=== PATIENT | female | born 1975 | race Hispanic/Latino ===

== ENCOUNTER 2021-12-25 14:13 | Emergency (ER) | payer SELFPAY ==
[2021-12-25 14:30] VITALS: BP 124/76; PULSE 87; RESP 18; TEMP 36.6; O2SAT 99
[2021-12-25 15:57] LABS: Add Manual Diff / Slide Review NO; Basophils Absolute Auto 100 /uL (0-100); Basophils Percent Auto 0.5 % (0-2); Eosinophils Absolute Auto 300 /uL (0-450); Eosinophils Percent Auto 1.8 % (2-4); Hematocrit 40.5 % (36-46); Hemoglobin 13.7 g/dL (12.0-16.0); Lymphocytes Absolute Auto 2300 /uL (1100-4500); Lymphocytes Percent Auto 14.7 % (25-40); Mean Corpuscular HGB Conc 33.7 % (30-36); Mean Corpuscular Hemoglobin 30.5 PG (26-34); Mean Corpuscular Volume 90.6 fL (80-100); Monocytes Absolute Auto 1100 /uL (0-900); Neutrophils Absolute Auto 12000 /uL (1500-7000); Platelet Count 316 X10^3/uL (150-400); Red Blood Cell Count 4.48 X10^6/uL (4.0-5.2); Red Cell Distribution Width 13.6 % (11.6-14.8); White Blood Cell Count 15.8 X10^3/uL (4.5-11.0)
[2021-12-25 16:00] LABS: Alanine Aminotransferase 12 IU/L (<35); Albumin Globulin Ratio 1.1 (1.0-2.8); Alkaline Phosphatase 81 U/L (38-126); Aspartate Aminotransferase 23 IU/L (14-36); BUN Creatinine Ratio 11.1 (6-22); Bilirubin Total 0.5 mg/dL (0.2-1.3); Blood Urea Nitrogen 9 mg/dL (7-17); Calcium 9.2 mg/dL (8.4-10.2); Carbon Dioxide 27 mmol/L (22-32); Chloride 107 mmol/L (98-107); Estimated Glomerular Filt Rate > 60.0 mL/min (>60); Globulin 3.8 g/dL (1.7-4.1); Glucose 113 mg/dL (70-100); HEMOLYSIS < 15 (0-50); Lipase 76 U/L (23-300); Sodium 136 mmol/L (137-145); Total Protein 7.8 g/dL (6.3-8.2)
--- NOTE | 2021-12-25 17:51 | DI.CT.S_ITS ---
PROCEDURE: CT ABDOMEN PELVIS W CON INDICATIONS: RLQ pain TECHNIQUE: After the administration of intravenous contrast, axial sections acquired from the lung bases to the pubic symphysis. Coronal and sagittal reformats were performed. For radiation dose reduction, the following was used: automated exposure control, adjustment of mA and/or kV according to patient size. COMPARISON: None. FINDINGS: Image quality: Excellent. Lung bases: Unremarkable. Heart: No significant findings. ABDOMEN: Liver: Unremarkable. Gallbladder: Unremarkable. Biliary ducts: Unremarkable. Pancreas: Unremarkable. Spleen: Unremarkable. Adrenal Glands: Unremarkable. Kidneys and Ureters: Unremarkable. Stomach and Bowel: Appendectomy suture noted. Multiple diverticula arise from the right colon and cecum, there is pericecal inflammatory change and edema noted. Peritoneum: No abnormal intraperitoneal fluid. No free air. Ventral Wall: No hernias. Abdominal Nodes: No retroperitoneal or mesenteric adenopathy by size criteria. Vessels: Aorta and inferior vena cava are normal in size. PELVIS: Pelvic Organs: 3.5 cm simple left adnexal cyst, probable ovarian cyst. Bladder: Unremarkable. Pelvic Nodes: No enlarged lymph nodes. Miscellaneous: No hernias are seen. Bones: Unremarkable. IMPRESSION: 1. Right-sided diverticulitis present. Pericecal inflammatory change without abscess or obstruction. 2. Left ovarian simple cyst, 3.5 cm 3. Appendectomy Approved by: Addison Murry M.D. on 12/25/2021 at 17:52
--- NOTE | 2021-12-25 17:57 | ED.ABDPAIN ---
HPI - Abdominal Pain <Jv Rizvi PA-C - Last Filed: 12/25/21 19:16> General Chief Complaint: Abdominal Pain Stated Complaint: Right side abd pain when she moves/burning Time Seen by Provider: 12/25/21 17:34 Source: patient and family Mode of arrival: Ambulatory History of Present Illness HPI narrative: 46-year-old female past medical history cirrhosis, alcohol abuse presents to the ED with 3 days of right lower quadrant pain. Patient denies fever, chills, chest pain, shortness of breath, cough, nausea, vomiting, dysuria, flank pain, lightheadedness, dizziness, syncope, constipation, diarrhea. Patient's last bowel movement was yesterday which she describes as diarrhea. Patient denies hematochezia, melena. Patient states she has had 2 C sections. Patient unsure if she has had an appendectomy. Related Data Previous Rx's Medication Instructions Recorded ciprofloxacin HCl 500 mg tablet 500 mg PO BID #14 tab 07/05/17 (Cipro) ondansetron 4 mg disintegrating 4 mg SUBLINGUAL Q6HP PRN #10 odt 07/05/17 tablet (Zofran ODT) ciprofloxacin HCl 500 mg tablet 500 mg PO BID 5 Days #10 tab 12/25/21 metronidazole 500 mg tablet 500 mg PO Q8H 5 Days #15 tab 12/25/21 Allergies Allergy/AdvReac Type Severity Reaction Status Date / Time No Known Drug Allergies Allergy Verified 12/25/21 14:32 Review of Systems <Jv Rizvi PA-C - Last Filed: 12/25/21 19:16> Review of Systems ROS Unobtainable: All systems reviewed & are unremarkable except as noted in HPI and below Constitutional Constitutional: Denies chills, Denies fatigue, Denies fever(s), Denies frequent falls, Denies lethargy and Denies weakness Eyes Eyes: Denies change in vision, Denies eye discharge, Denies irritation and Denies loss of vision ENT Ears, Nose, Mouth, and Throat: Denies change in voice, Denies dizziness, Denies neck pain, Denies sore throat and Denies throat swelling Cardiovascular Cardiovascular: Denies chest pain, Denies irregular heart rhythm, Denies lightheadedness, Denies palpitations, Denies dyspnea, Denies dyspnea on exertion and Denies orthopnea Respiratory Respiratory: Denies cough, Denies dyspnea, Denies dyspnea on exertion and Denies wheezing Gastrointestinal Gastrointestinal: Reports abdominal pain, Denies change in bowel habits, Denies diarrhea, Denies nausea and Denies vomiting Genitourinary Genitourinary: Denies hematuria, Denies flank pain, Denies urinary incontinence and Denies urinary urgency Musculoskeletal Musculoskeletal: Denies back pain, Denies muscle weakness, Denies neck pain, Denies numbness and Denies tingling Integumentary/Breasts Skin/Breast: Denies pruritus, Denies erythema, Denies rash and Denies wounds Neurologic Neurologic: Denies behavioral changes, Denies confusion, Denies dizziness, Denies frequent falls, Denies loss of vision, Denies numbness, Denies tingling and Denies weakness Psychiatric Psychiatric: Denies anxiety, Denies behavioral changes, Denies confusion, Denies depression, Denies homicidal ideation and Denies suicidal ideation Endocrine Endocrine: Denies fatigue, Denies flushing and Denies palpitations Hematologic/Lymphatic Hematologic/Lymphatic: Denies easy bruising Allergic/Immunologic Allergic/Immunologic: Denies urticaria, Denies throat swelling and Denies wheezing Patient History <Jv Rizvi PA-C - Last Filed: 12/25/21 19:16> Social History Smoking Status: Current every day smoker Smoking Status: Current every day smoker Exam <Jv Rizvi PA-C - Last Filed: 12/25/21 19:16> Initial Vital Signs Initial Vital Signs: Vital Signs Temperature 97.8 F 12/25/21 14:30 Pulse Rate 87 12/25/21 14:30 Respiratory Rate 18 12/25/21 14:30 Blood Pressure 124/76 12/25/21 14:30 Pulse Oximetry 99 12/25/21 14:30 Const General: cooperative, healthy appearing and comfortable [facility] Head: normal to inspection Eyes General: appearance normal, both eyes and all related structures Neck Neck: normal visual inspection Chest Chest: normal inspection of the chest Resp Effort & Inspection: normal respiratory effort Auscultation: clear to auscultation bilaterally Cardio Rate: regular rate Rhythm: regular rhythm GI Other: Abdomen is soft, nondistended. Abdomen is exquisitely tender to palpation in the right lower quadrant. No CVA tenderness. General: No CVA tenderness Skin General: no rashes or lesions noted Neuro General: patient alert, patient awake and patient oriented x3 Psych Appearance: grossly normal Mental Status: mental status grossly normal <Santa Cherry DO - Last Filed: 12/26/21 07:52> Initial Vital Signs Initial Vital Signs: Vital Signs Temperature 97.8 F 12/25/21 14:30 Pulse Rate 87 12/25/21 14:30 Respiratory Rate 18 12/25/21 14:30 Blood Pressure 124/76 12/25/21 14:30 Pulse Oximetry 99 12/25/21 14:30 Course <Jv Rizvi PA-C - Last Filed: 12/25/21 19:16> Orders Ordered: Discontinued Medications Al Hydrox/Mg Hydrox/Simethicone 20 ml/ Lidocaine HCl 15 ml 0 ml PO NOW ONE Stop: 12/25/21 17:58 Last Admin: 12/25/21 18:20 Dose: 35 ml Documented by: COLIN Famotidine (Famotidine 20 Mg/2 Ml Vial) 20 mg IV NOW [facility] Last Admin: 12/25/21 18:19 Dose: 20 mg Documented by: LONG Morphine Sulfate (Morphine 4 Mg/Ml Inj) 4 mg IV NOW ONE Stop: 12/25/21 17:52 Last Admin: 12/25/21 18:18 Dose: 4 mg Documented by: LONG Vital Signs Vital signs: Vital Signs - 8 hr 12/25/21 14:30 12/25/21 18:16 12/25/21 18:20 Temperature 97.8 F 98.2 F Pulse Rate 87 74 Respiratory Rate 18 Blood Pressure 124/76 120/72 Pulse Oximetry 99 99 <Santa Cherry DO - Last Filed: 12/26/21 07:52> Orders Ordered: Discontinued Medications Al Hydrox/Mg Hydrox/Simethicone 20 ml/ Lidocaine HCl 15 ml 0 ml PO NOW ONE Stop: 12/25/21 17:58 Last Admin: 12/25/21 18:20 Dose: 35 ml Documented by: COLIN Famotidine (Famotidine 20 Mg/2 Ml Vial) 20 mg IV NOW [facility] Last Admin: 12/25/21 18:19 Dose: 20 mg Documented by: LONG Morphine Sulfate (Morphine 4 Mg/Ml Inj) 4 mg IV NOW ONE Stop: 12/25/21 17:52 Last Admin: 12/25/21 18:18 Dose: 4 mg Documented by: LONG Vital Signs Vital signs: Vital Signs - 8 hr 12/25/21 14:30 12/25/21 18:16 12/25/21 18:20 Temperature 97.8 F 98.2 F Pulse Rate 87 74 Respiratory Rate 18 Blood Pressure 124/76 120/72 Pulse Oximetry 99 99 MDM - Abdominal Pain <Hymelba Rizvi PA-C - Last Filed: 12/25/21 19:16> Lab Data Lab results narrative: WBC 15.8 Result diagrams: 12/25/21 14:36 12/25/21 14:36 Labs: Lab Results 12/25/21 12/25/21 Range/Units 14:36 14:36 WBC 15.8 H (4.5-11.0) X10^3/uL RBC 4.48 (4.0-5.2) X10^6/uL Hgb 13.7 (12.0-16.0) g/dL Hct 40.5 (36-46) % MCV 90.6 (80-100) fL MCH 30.5 (26-34) PG MCHC 33.7 (30-36) % RDW 13.6 (11.6-14.8) % Plt Count 316 (150-400) X10^3/uL Neut % (Auto) 76.0 H (50-75) % Lymph % (Auto) 14.7 L (25-40) % [place] % (Auto) 7.0 (3-14) % Eos % (Auto) 1.8 L (2-4) % Baso % (Auto) 0.5 (0-2) % Neut # (Auto) 95551 H (7500-3398) /uL Lymph # (Auto) 2300 (5001-8424) /uL [place] # (Auto) 1100 H (0-900) /uL Eos # (Auto) 300 (0-450) /uL Baso # (Auto) 100 (0-100) /uL Sodium 136 L (137-145) mmol/L Potassium 4.0 (3.4-5.1) mmol/L Chloride 107 (98-107) mmol/L Carbon Dioxide 27 (22-32) mmol/L BUN 9 (7-17) mg/dL Creatinine 0.81 (0.52-1.04) mg/dL Estimated GFR > 60.0 (>60) mL/min BUN/Creatinine Ratio 11.1 (6-22) Glucose 113 H (70-100) mg/dL Calcium 9.2 (8.4-10.2) mg/dL Total Bilirubin 0.5 (0.2-1.3) mg/dL AST 23 (14-36) IU/L ALT 12 (<35) IU/L Alkaline Phosphatase 81 (38-126) U/L Total Protein 7.8 (6.3-8.2) g/dL Albumin 4.0 (3.5-5.0) g/dL Globulin 3.8 (1.7-4.1) g/dL Albumin/Globulin Ratio 1.1 (1.0-2.8) Lipase 76 (23-300) U/L Point of care testing: Point of Care Testing Test Results Negative Urine Dip Bedside Urine Glucose Negative Bedside Urine Bilirubin - Negative Bedside Urine Ketone - Negative Urine Specific Mcdonald 1.015 Bedside Urine Occult Blood - Negative Bedside Urine pH 6 Bedside Urine Protein - Negative Bedside Urine Urobilinogen - Negative Bedside Urine Nitrite - Negative Bedside Urine Leukocytes - Negative Esterase Imaging Data CT scan - abdomen/pelvis: Radiologist's Impression: PROCEDURE:? CT ABDOMEN PELVIS W CON ? INDICATIONS:? RLQ pain ? TECHNIQUE:? After the administration of intravenous contrast, axial sections acquired from the lung bases to the pubic symphysis.? Coronal and sagittal reformats were performed.? For radiation dose reduction, the following was used:? automated exposure control, adjustment of mA and/or kV according to patient size.? ? COMPARISON:? None. ? FINDINGS:? Image quality:? Excellent.? ? Lung bases:? Unremarkable. Heart:? No significant findings. ? ABDOMEN: Liver:? Unremarkable.? ? Gallbladder:? Unremarkable.? ? Biliary ducts:? Unremarkable.? ? Pancreas:? Unremarkable.? ? Spleen:? Unremarkable.? ? Adrenal Glands:? Unremarkable.? ? Kidneys and Ureters:? Unremarkable.? ? ? Stomach and Bowel:? Appendectomy suture noted.? Multiple diverticula arise from the right colon and cecum, there is pericecal inflammatory change and edema noted. Peritoneum:? No abnormal intraperitoneal fluid.? No free air.? ? Ventral Wall: ? No hernias.? Abdominal Nodes:? No retroperitoneal or mesenteric adenopathy by size criteria.? Vessels:? Aorta and inferior vena cava are normal in size.? ? PELVIS: Pelvic Organs:? 3.5 cm simple left adnexal cyst, probable ovarian cyst. Bladder:? Unremarkable.? ? Pelvic Nodes: No enlarged lymph nodes.? Miscellaneous: No hernias are seen. ? ? ? Bones:? Unremarkable.? IMPRESSION:? ? 1. Right-sided diverticulitis present.? Pericecal inflammatory change without abscess or obstruction. ? 2. Left ovarian simple cyst, 3.5 cm ? 3. Appendectomy ? ? Approved by: Addison Murry M.D. on 12/25/2021 at 17:52? MDM Narrative Medical decision making narrative: 46-year-old female past medical history cirrhosis, alcohol abuse presents to the ED with 3 days of right lower quadrant pain. Concern for appendicitis versus urolithiasis versus UTI versus pancreatitis versus GERD versus gastritis. Will order labs, lipase, UA, hCG, CT abdomen pelvis. Will give IV fluids, morphine for symptoms. Will reassess. CT abdomen pelvis right-sided uncomplicated diverticulitis. Patient prescribed ciprofloxacin, metronidazole. Counseled patient on clear liquid diet, PCP follow-up in 3-5 days. ED return precautions discussed. Patient verbalized understanding. Discharge patient home. <Santa Cherry, - Last Filed: 12/26/21 07:52> Lab Data Labs: Lab Results 12/25/21 12/25/21 Range/Units 14:36 14:36 WBC 15.8 H (4.5-11.0) X10^3/uL RBC 4.48 (4.0-5.2) X10^6/uL Hgb 13.7 (12.0-16.0) g/dL Hct 40.5 (36-46) % MCV 90.6 (80-100) fL MCH 30.5 (26-34) PG MCHC 33.7 (30-36) % RDW 13.6 (11.6-14.8) % Plt Count 316 (150-400) X10^3/uL Neut % (Auto) 76.0 H (50-75) % Lymph % (Auto) 14.7 L (25-40) % [place] % (Auto) 7.0 (3-14) % Eos % (Auto) 1.8 L (2-4) % Baso % (Auto) 0.5 (0-2) % Neut # (Auto) 93984 H (1625-7635) /uL Lymph # (Auto) 2300 (9975-6245) /uL [place] # (Auto) 1100 H (0-900) /uL Eos # (Auto) 300 (0-450) /uL Baso # (Auto) 100 (0-100) /uL Sodium 136 L (137-145) mmol/L Potassium 4.0 (3.4-5.1) mmol/L Chloride 107 (98-107) mmol/L Carbon Dioxide 27 (22-32) mmol/L BUN 9 (7-17) mg/dL Creatinine 0.81 (0.52-1.04) mg/dL Estimated GFR > 60.0 (>60) mL/min BUN/Creatinine Ratio 11.1 (6-22) Glucose 113 H (70-100) mg/dL Calcium 9.2 (8.4-10.2) mg/dL Total Bilirubin 0.5 (0.2-1.3) mg/dL AST 23 (14-36) IU/L ALT 12 (<35) IU/L Alkaline Phosphatase 81 (38-126) U/L Total Protein 7.8 (6.3-8.2) g/dL Albumin 4.0 (3.5-5.0) g/dL Globulin 3.8 (1.7-4.1) g/dL Albumin/Globulin Ratio 1.1 (1.0-2.8) Lipase 76 (23-300) U/L Point of care testing: Point of Care Testing Test Results Negative Urine Dip Bedside Urine Glucose Negative Bedside Urine Bilirubin - Negative Bedside Urine Ketone - Negative Urine Specific Mcdonald 1.015 Bedside Urine Occult Blood - Negative Bedside Urine pH 6 Bedside Urine Protein - Negative Bedside Urine Urobilinogen - Negative Bedside Urine Nitrite - Negative Bedside Urine Leukocytes - Negative Esterase Discharge Plan Departure Patient Disposition: Home Clinical Impression: Diverticulitis Instructions: DI for Diverticulitis Activity Restrictions/Additional Instructions: You were evaluated in the ED today for right lower quadrant pain. Your your CT abdomen pelvis shows diverticulitis which is an abdominal infection. You have been prescribed antibiotics. Please rest your bowels by only taking and clear fluids for 5 days. You may take ibuprofen or Tylenol for your symptoms. You may take Pepcid AC twice a day for heartburn. To the ED if you develop fevers, chills, worsening abdominal pain, uncontrollable vomiting. Please follow-up with your PCP in 3-5 days. Prescriptions: New metronidazole 500 mg tablet 500 mg PO Q8H 5 Days Qty: 15 0RF ciprofloxacin HCl 500 mg tablet 500 mg PO BID 5 Days Qty: 10 0RF No Action ciprofloxacin HCl [Cipro] 500 MG tablet 500 mg PO BID Qty: 14 0RF ondansetron [Zofran ODT] 4 MG tablet,disintegrating 4 mg Sublingual Q6HP PRNQty: 10 0RF <Santa Cherry, DO - Last Filed: 12/26/21 07:52> Cosign ED Attending Cosgeorgeature Attestation: I was immediately available in the department for consultation. Documentation has been reviewed. I agree with assessment and plan.
[2021-12-25 18:16] VITALS: BP 120/72; PULSE 74; O2SAT 99
[2021-12-25] MEDS: MORPHINE 4 MG/ML INJ IV (18:18)
[2021-12-25] MEDS: FAMOTIDINE 20 MG/2 ML VIAL IV (18:19)
[2021-12-25 18:20] VITALS: TEMP 36.8
[2021-12-25] MEDS: MAG HYDROX/ALUMINUM/SIMETH SUS 20 ML, LIDOCAINE VISCOUS 2% 15 ML PO (18:20)
== END 2021-12-25 19:34 | disposition home or self-care (01) ==
PROVIDERS: Emergency Medicine; Emergency Provider Student in an Organized Health Care Education/Training Program
DX: K57.32 Diverticulitis of large intestine without perforation or abscess without bleeding (principal)
CPT/HCPCS: 36415; 74177; 80053; 81003; 81025; 83690; 85025; 96374; 96375; 99284; J2270; Q9967

== ENCOUNTER 2024-07-07 12:19 | Inpatient (IN) | payer SELFPAY ==
[2024-07-07] VITALS (49 sets, daily range): BP systolic 94–132; BP diastolic 53–85; PULSE 70–135; RESP 14–32; TEMP 36.4–36.9; O2SAT 94–100; BMI 26.4; BMI 24.6
--- NOTE | 2024-07-07 12:38 | EKG_ITS ---
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
--- NOTE | 2024-07-07 12:53 | ED_ITS ---
HPI - Alcohol General Chief Complaint: Toxicology Problem Stated Complaint: abd px Time Seen by Provider: 07/07/24 12:36 Source: patient Mode of arrival: Ambulatory History of Present Illness HPI narrative: Patient here with and daughter. They have declined senior air director services. Patient drinks heavily, at least a 12 pack of beer daily for many years. She did have rehabilitation in the past year. She has had off and on bright red blood per rectum. This past year. She has has had episodes recently. Denies abdominal pain. Last alcohol 5:00 a.m. today. Patient is trying to stop drinking alcohol. No auditory or visual hallucinations, no fall or injury. Patient is very tremulous but is alert and cooperative. Not agitated. Related Data Home Medications Medication Instructions Recorded Confirmed No Known Home Medications 07/08/24 07/08/24 Allergies Allergy/AdvReac Type Severity Reaction Status Date / Time No Known Drug Allergies Allergy Verified 07/07/24 14:04 Review of Systems Review of Systems Narrative: GENERAL: negative chills, fatigue, malaise, fever, sweats. HEENT: negative sinus pain, ear pain, sore throat RESPIRATORY: negative dyspnea, cough CARDIOVASCULAR: negative chest pain, palpitations GASTROINTESTINAL: Positive nausea, vomiting, positive rectal bleeding, negative abdominal pain : negative dysuria, frequency, hematuria MUSCULOSKELETAL: negative muscle or bony pain SKIN: negative rash, skin lesions NEUROLOGIC: negative weakness, numbness positive tremors Patient History Social History household members: spouse and family Smoking Status: Current every day smoker Smoking Status: Current every day smoker alcohol intake frequency: 3 or more drinks per day Alcohol type: beer Substance Use Type: does not use Exam Narrative Exam Narrative: GENERAL: in no distress, not toxic not dyspneic HEAD: Normocephalic. EYES: Pupils equal round pink conjunctiva ENT: Mucous membranes moist. NECK: Trachea midline. CARDIOVASCULAR: Regular rate and rhythm, tachycardic RESPIRATORY: Clear to auscultation. Breath sounds equal bilaterally. No wheezes, rales, or rhonchi. GASTROINTESTINAL: Abdomen soft, non-tender no peritoneal signs EXTREMITIES: No gross deformities. BACK: No flank tenderness. NEURO: AOx4. SKIN: Warm and dry no jaundice PSYCH: Not anxious, is cooperative Initial Vital Signs Initial Vital Signs: Vital Signs Temperature 97.5 F L 07/07/24 12:25 Pulse Rate 135 H 07/07/24 12:25 Respiratory Rate 18 07/07/24 12:25 Blood Pressure 118/56 L 07/07/24 12:25 Pulse Oximetry 100 07/07/24 12:25 Oxygen Delivery Method Room Air 07/07/24 12:25 Course Orders Ordered: Discontinued Medications Heparin Sodium (Porcine) (Heparin Flush (Cl/Picc/Mid-Line) 50 Unit/5 Ml Syringe) 50 unit IV PRN PRN PRN Reason: Flush Lactated Ringer's (Lactated Ringers) 500 mls @ 1,000 mls/hr IV BOLUS ONE Stop: 07/07/24 17:14 Last Infusion: 07/07/24 19:21 Dose: Infused Documented By: Admin: 07/07/24 17:06 Dose: 1,000 mls/hr Documented By: CW Thiamine HCl 500 mg/ Sodium (Chloride) 105 mls @ 420 mls/hr IV NOW ONE Stop: 07/07/24 16:52 Last Infusion: 07/07/24 21:02 Dose: Infused Documented By: Admin: 07/07/24 17:41 Dose: 420 mls/hr Documented By: MARLON Lactated Ringer's (Lactated Ringers) 1,000 mls @ 100 mls/hr IV CONT NICK Last Admin: 07/09/24 06:58 Dose: 100 mls/hr Documented By: Infusion: 07/09/24 02:30 Dose: Infused Documented By: Admin: 07/08/24 16:08 Dose: 100 mls/hr Documented By: Infusion: 07/08/24 14:01 Dose: Infused Documented By: Admin: 07/08/24 04:01 Dose: 100 mls/hr Documented By: Infusion: 07/08/24 03:42 Dose: Infused Documented By: Admin: 07/07/24 17:42 Dose: 100 mls/hr Documented By: MARLON POTASSIUM CHLORIDE IN WATER (Potassium Cl 10 Meq/100 Ml Lida) 10 meq in 100 mls @ 100 mls/hr IV Q1H NICK Stop: 07/08/24 16:29 Last Admin: 07/08/24 15:58 Dose: Not Given Documented By: Admin: 07/08/24 15:57 Dose: Not Given Documented By: Infusion: 07/08/24 15:57 Dose: Infused Documented By: Admin: 07/08/24 11:39 Dose: 100 mls/hr Documented By: Infusion: 07/08/24 09:49 Dose: Infused Documented By: Admin: 07/08/24 08:49 Dose: 100 mls/hr Documented By: CALEB Magnesium Sulfate (Magnesium Sulfate) 2 gm in 50 mls @ 25 mls/hr IV NOW ONE Stop: 07/08/24 10:22 Last Infusion: 07/08/24 15:58 Dose: Infused Documented By: CALEB Co-signed By: JUDIT Admin: 07/08/24 08:47 Dose: 25 mls/hr Documented By: CALEB Co-signed By: JUDIT Lactated Ringer's (Lactated Ringers) 500 mls @ 1,000 mls/hr IV BOLUS ONE Stop: 07/09/24 05:07 Last Infusion: 07/09/24 05:45 Dose: Infused Documented By: Admin: 07/09/24 04:55 Dose: 1,000 mls/hr Documented By: JIM NOREPINEPHRINE BITARTRATE/D5W (Levophed) 4 mg in 250 mls @ 21.45 mls/hr IV TITRATE NICK; Protocol Last Titration: 07/09/24 12:39 Dose: 0 mcg/kg/min, 0 mls/hr Documented By: Titration: 07/09/24 11:38 Dose: 0.06 mcg/kg/min, 12.87 mls/hr Documented By: Titration: 07/09/24 10:07 Dose: 0.08 mcg/kg/min, 17.16 mls/hr Documented By: Admin: 07/09/24 07:46 Dose: 0.1 mcg/kg/min, 21.45 mls/hr Documented By: JUDIT Ceftriaxone Sodium 1,000 mg/ (Sodium Chloride) 100 mls @ 200 mls/hr IV Q24H NICK Last Admin: 07/09/24 10:43 Dose: 200 mls/hr Documented By: JUDIT Lorazepam (Lorazepam 2 Mg/Ml Inj) 0 mg IV CIWAPRN PRN; Protocol PRN Reason: Alcohol Withdrawal Last Admin: 07/09/24 04:36 Dose: 2 mg Documented By: JIM Lorazepam (Lorazepam 2 Mg/Ml Inj) 0.5 mg IV NOW ONE Stop: 07/07/24 14:07 Last Admin: 07/07/24 14:12 Dose: 0.5 mg Documented By: IRIS Multivitamins (Multivitamin 1 Tablet) 1 tab PO DAILY [facility] Last Admin: 07/09/24 10:06 Dose: Not Given Documented By: Admin: 07/08/24 08:47 Dose: 1 tab Documented By: CALEB Naloxone HCl (Naloxone 0.4 Mg/Ml Vial) 0.2 mg IV Q2MIN PRN PRN Reason: Opiate Reversal Ondansetron HCl (Ondansetron 4 Mg/2 Ml Inj) 4 mg IV NOW PRN PRN Reason: Nausea And Vomiting Ondansetron HCl (Ondansetron 4 Mg Odt) 4 mg SL NOW PRN PRN Reason: Nausea And Vomiting Pantoprazole Sodium (Pantoprazole 40 Mg Vial) 80 mg IV NOW ONE Stop: 07/07/24 12:39 Last Admin: 07/07/24 13:17 Dose: 80 mg Documented By: SHAWNEE Pantoprazole Sodium (Pantoprazole 40 Mg Vial) 80 mg IV NOW ONE Stop: 07/07/24 14:35 Last Admin: 07/07/24 14:48 Dose: Not Given Documented By: SHAWNEE Pantoprazole Sodium (Pantoprazole Dr 40 Mg Tablet) 40 mg PO 0700 [facility] Last Admin: 07/09/24 10:08 Dose: Not Given Documented By: JUDIT Pantoprazole Sodium (Pantoprazole Dr 20 Mg Tablet) 40 mg PO NOW ONE Stop: 07/08/24 20:48 Last Admin: 07/08/24 21:33 Dose: 40 mg Documented By: JIM Pantoprazole Sodium (Pantoprazole 40 Mg Vial) 40 mg IV 0700 [facility] Phenobarbital (Phenobarbital 65 Mg/Ml Vial) 260 mg IV NOW ONE Stop: 07/07/24 16:51 Last Admin: 07/07/24 17:10 Dose: 260 mg Documented By: CALEB Phenobarbital (Phenobarbital 65 Mg/Ml Vial) 260 mg IV NOW ONE Stop: 07/07/24 18:20 Last Admin: 07/07/24 19:21 Dose: Not Given Documented By: MARLON Phenobarbital Sodium (Phenobarbital 130 Mg/Ml Vial) 130 mg IV NOW ONE Stop: 07/07/24 18:53 Last Admin: 07/07/24 18:58 Dose: 130 mg Documented By: MARLON Potassium Chloride (Potassium Chloride 20 Meq Tab) 40 meq PO Q6H [facility] Stop: 07/08/24 19:01 Last Admin: 07/08/24 18:43 Dose: 40 meq Documented By: Admin: 07/08/24 12:41 Dose: 40 meq Documented By: CALEB Sodium Chloride (Sodium Chloride 0.9% Flush) 10 ml IV PRN PRN PRN Reason: Flush Sodium Chloride (Sodium Chloride 0.9% Flush) 10 ml IV BID [facility] Last Admin: 07/09/24 10:06 Dose: Not Given Documented By: Admin: 07/08/24 21:10 Dose: 10 ml Documented By: Admin: 07/08/24 12:10 Dose: 10 ml Documented By: Admin: 07/07/24 21:05 Dose: 10 ml Documented By: JIM Thiamine HCl (Thiamine 100 Mg Tablet) 100 mg PO DAILY [facility] Stop: 07/11/24 09:01 Vital Signs Vital signs: Vital Signs - 8 hr 07/07/24 12:25 07/07/24 12:42 07/07/24 12:43 Temperature 97.5 F L Pulse Rate 135 H 102 H 102 H Respiratory Rate 18 Blood Pressure 118/56 L Pulse Oximetry 100 100 100 Oxygen Delivery Method Room Air 07/07/24 12:43 07/07/24 13:00 07/07/24 13:00 Temperature Pulse Rate 91 H Respiratory Rate 22 Blood Pressure 104/71 115/68 Pulse Oximetry 100 Oxygen Delivery Method 07/07/24 13:30 07/07/24 13:30 07/07/24 14:00 Temperature Pulse Rate 85 90 Respiratory Rate 26 H 29 H Blood Pressure 106/70 Pulse Oximetry 100 100 Oxygen Delivery Method 07/07/24 14:00 07/07/24 14:06 07/07/24 14:06 Temperature Pulse Rate 82 Respiratory Rate 26 H Blood Pressure 108/72 99/62 Pulse Oximetry 100 Oxygen Delivery Method 07/07/24 14:11 07/07/24 14:11 07/07/24 14:15 Temperature Pulse Rate 90 85 Respiratory Rate 26 H 24 Blood Pressure 107/65 Pulse Oximetry 100 100 Oxygen Delivery Method Room Air 07/07/24 14:15 07/07/24 14:20 07/07/24 14:20 Temperature Pulse Rate 83 Respiratory Rate 26 H Blood Pressure 105/62 106/63 Pulse Oximetry 100 Oxygen Delivery Method 07/07/24 14:25 07/07/24 14:25 07/07/24 14:30 Temperature Pulse Rate 92 H 109 H Respiratory Rate 17 31 H Blood Pressure 126/79 Pulse Oximetry 100 100 Oxygen Delivery Method 07/07/24 14:30 07/07/24 14:35 07/07/24 14:35 Temperature Pulse Rate 99 H Respiratory Rate 27 H Blood Pressure 132/85 105/64 Pulse Oximetry 99 Oxygen Delivery Method MDM - Alcohol Lab Data 07/09/24 13:25 07/09/24 05:20 Labs: Lab Results 07/07/24 07/07/24 07/07/24 Range/Units 12:48 14:28 14:28 WBC 13.6 H (4.5-11.0) X10^3/uL RBC 3.61 L (4.0-5.2) X10^6/uL Hgb 12.1 (12.0-16.0) g/dL Hct 35.6 L (36-46) % MCV 98.5 (80-100) fL MCH 33.4 (26-34) PG MCHC 33.9 (30-36) % RDW 12.3 (11.6-14.8) % Plt Count 228 (150-400) X10^3/uL Neut % (Auto) 76.0 H (50-75) % Lymph % (Auto) 15.0 L (25-40) % Leon % (Auto) 7.5 (3-14) % Eos % (Auto) 0.2 L (2-4) % Baso % (Auto) 1.3 (0-2) % Neut # (Auto) 90956 H (9607-7515) /uL Lymph # (Auto) 2000 (0906-5564) /uL Leon # (Auto) 1000 H (0-900) /uL Eos # (Auto) 0 (0-450) /uL Baso # (Auto) 200 H (0-100) /uL PT 12.1 (9.4-12.5) SECONDS INR 1.1 (0.9-1.3) APTT 27 (25.1-36.5) SECONDS Sodium 136 L (137-145) mmol/L Potassium 3.8 (3.4-5.1) mmol/L Chloride 106 (98-107) mmol/L Carbon Dioxide 19 L (22-32) mmol/L BUN 9 (7-17) mg/dL Creatinine 0.85 (0.52-1.04) mg/dL Estimated GFR > 60 (>60) mL/min BUN/Creatinine Ratio 10.6 (6-22) Glucose 177 H (70-100) mg/dL Hemoglobin A1c 4.6 (4.0-6.0) % Calcium 9.0 (8.4-10.2) mg/dL Magnesium 1.6 (1.6-2.3) mg/dL Total Bilirubin 2.0 H (0.2-1.3) mg/dL AST 71 H (14-36) IU/L ALT 30 (<35) IU/L Alkaline Phosphatase 105 (38-126) U/L Total Protein 7.1 (6.3-8.2) g/dL Albumin 3.6 (3.5-5.0) g/dL Globulin 3.5 (1.7-4.1) g/dL Albumin/Globulin Ratio 1.0 (1.0-2.8) Urine Color Yellow Urine Appearance Sl cloudy Urine pH 8.5 H Normal (4.5-8.0) Ur Specific [place] 1.010 (1.000-1.035) Urine Protein Negative (Negative) Urine Glucose (UA) Negative (Negative) g/dL Urine Ketones 2+ H (NEGATIVE) Urine Occult Blood 2+ H (Negative) Urine Nitrate Positive H (Negative) Urine Bilirubin 1+ H (NEGATIVE) Ur Bilirubin Confirm Negative (Negative) Urine Urobilinogen 0.2 (0.2) E.U./dL Ur Leukocyte Esterase Trace H (NEGATIVE) Urine RBC None seen (0-5/HPF) Urine WBC 10-30/hpf H (0-5/HPF) Ur Squamous Epith Cells 1-5 /hpf (0-5/HPF) Urine Bacteria Many (>30) H (None) Ur Culture Indicated? Specimen cultured Vol Urine Centrifuged 10ml (spun) Urine Test Negative (Negative) U Opiates 300ng/mL cut Negative (Negative) Ur Oxycodone Screen Negative (Negative) Urine Methadone Screen Negative (Negative) Ur Barbiturates Screen Negative (Negative) U Tricyclic Antidepress Negative (Negative) Ur Phencyclidine Scrn Negative (Negative) Ur Amphetamines Screen Negative (Negative) U Methamphetamines Scrn Negative (Negative) Ur MDMA Scrn (Ecstasy) Negative (Negative) U Benzodiazepines Scrn Negative (Negative) Urine Cocaine Screen Negative (Negative) U Marijuana (THC) Screen Negative (Negative) Urine Specific [place] Normal (Normal) Ethyl Alcohol < 10 ( - 10) mg/dL Ur Creatinine Normal (Normal) Blood Type B Positive Antibody Screen Negative Point of Care Testing Stool Occult Blood Positive Imaging Data CT scan - abdomen/pelvis: Radiologist's Impressoin: [address] [address] [address] Scan Report Signed Patient: Dolly Rodriguez MR#: [id number] : 1975 Acct:[id number] Age/Sex: 48 / F Date of Service: 07/07/24 Loc: 90A-1 Accession Number: [id number] Procedure: CT abdomen pelvis w con Ordering Provider: Tigre Kramer MD PROCEDURE: CT ABDOMEN PELVIS W CON INDICATIONS: Abdominal pain/rectal bleeding TECHNIQUE: After the administration of intravenous contrast, axial sections acquired from the lung bases to the pubic symphysis. Coronal and sagittal reformats were performed. For radiation dose reduction, the following was used: automated exposure control, adjustment of mA and/or kV according to patient size. COMPARISON: [facility], CT, CT ABDOMEN PELVIS W CON, 12/25/2021, 17:56. FINDINGS: Image quality: Diagnostic. Lower Chest: No significant findings. ABDOMEN: Liver: No solid mass. Hepatic steatosis. Liver measures 17.3 cm. Gallbladder: No radiopaque gallstones or wall thickening. Biliary ducts: No biliary dilation. Pancreas: No ductal dilation. Spleen: Size is within normal limits. Adrenal Glands: No adrenal nodules. Kidneys and Ureters: No hydronephrosis. No solid mass. No complex renal cystic lesion which requires follow up. Stomach and Bowel: There is fluid-filled prominence of the sigmoid colon with mild scattered fluid levels without gross dilation within the remaining colon. Scattered diverticula are present without definitively identified inflammation. Peritoneum: No abnormal intraperitoneal fluid. No free air. Ventral Wall: No significant ventral hernia. Abdominal Nodes: No retroperitoneal or mesenteric adenopathy by size criteria. Vessels: Aorta and inferior vena cava are normal in size. PELVIS: Pelvic Organs: 2.1 cm right ovarian cyst. Bladder: Bladder demonstrates a diffusely thickened wall. It is incompletely distended. Pelvic Nodes: No enlarged lymph nodes. Miscellaneous: No inguinal hernias are seen. Bones: No aggressive osseous abnormality. IMPRESSION: Fluid-filled prominence of the sigmoid colon possibly secondary to diarrhea. No source of obstruction is identified. Diverticulosis. Despite incomplete distention, bladder wall is markedly thickened. Recommend correlation to symptoms of cystitis. Dictated by: Lain Douglas M.D. on 07/07/2024 at 15:47 Approved by: Lian Douglas M.D. on 07/07/2024 at 15:51 [facility] Narrative Medical decision making narrative: Patient here with and daughter. They have declined senior air director services. Patient drinks heavily, at least a 12 pack of beer daily for many years. She did have rehabilitation in the past year. She has had off and on bright red blood per rectum. This past year. She has has had episodes recently. Denies abdominal pain. Last alcohol 5:00 a.m. today. Patient is trying to stop drinking alcohol. No auditory or visual hallucinations, no fall or injury. Patient is very tremulous but is alert and cooperative. Not agitated. After history and exam CBC CMP alcohol level drug screen EKG [facility] protocol medications [facility] Medical records reviewed: No recent visit for this complaint Differential considered: Includes but not limited to delirium tremens alcohol withdrawal Lab Test results independently reviewed as above. Pertinent findings: WBC 13.6 hemoglobin 12.1 hematocrit 35.6 sodium 136 potassium 3.8 bicarb 19 GFR greater than 60 glucose 177 total bilirubin 2.0 AST 71 negative alcohol Independently reviewed EKG normal sinus rhythm normal EKG rate 83 Imaging studies independently reviewed: CT abdomen pelvis diverticulosis noted fluid-filled Consultations: 2:[address] Sheehan, who will admit patient for withdrawal, ICU. 2:40 p.m.. Spoke with hospitalist again Dr Sheehan, patient had large dark stool in bed jaime. We did review images from 2021 CT abdomen pelvis patient does have history of right-sided diverticulosis diverticulitis. Liver was unremarkable on that CT imaging 2 years ago. I did contact Dr. Flores, general surgery, who will follow in consult however he is in surgery at this time. Vital signs are stable at this time. Protonix has been ordered. This is likely diverticular bleed. Patient denies any epigastric pain and there has been no hematemesis. Treatments: Ativan normal saline Zofran Re-evaluations: Updated patient and family results and they do agree for admission. Patient is feeling better. Discussion: Appropriate for admission, patient will need inpatient for alcohol withdrawal symptoms. Patient is improving Diagnosis: Alcohol withdrawal Critical Care Time Critical Care Time Attestation: Critical Care Time 35 minutes: Critical care time is separate from other billable procedures. This critical care time includes consultation with family and other consulting doctors, review of records, and interpretation of data from labs, EKGs, imaging, etc. Discharge Plan Departure Patient Disposition: Admitted As Inpatient Clinical Impression: Alcohol withdrawal syndrome Qualifiers: Complication of substance-induced condition: uncomplicated Qualified Code(s): F 10.930 - Alcohol use, unspecified with withdrawal, uncomplicated Admit Date/Time: 07/07/24 14:38 Admit Provider: Bhaskar Sheehan
[2024-07-07 13:01] LABS: Add Manual Diff / Slide Review NO; Basophils Absolute Auto 200 /uL (0-100); Basophils Percent Auto 1.3 % (0-2); Eosinophils Absolute Auto 0 /uL (0-450); Eosinophils Percent Auto 0.2 % (2-4); Hematocrit 35.6 % (36-46); Hemoglobin 12.1 g/dL (12.0-16.0); Lymphocytes Absolute Auto 2000 /uL (1100-4500); Mean Corpuscular HGB Conc 33.9 % (30-36); Mean Corpuscular Hemoglobin 33.4 PG (26-34); Mean Corpuscular Volume 98.5 fL (80-100); Monocytes Absolute Auto 1000 /uL (0-900); Monocytes Percent Auto 7.5 % (3-14); Neutrophils Absolute Auto 10300 /uL (1500-7000); Platelet Count 228 X10^3/uL (150-400); Red Blood Cell Count 3.61 X10^6/uL (4.0-5.2); Red Cell Distribution Width 12.3 % (11.6-14.8); White Blood Cell Count 13.6 X10^3/uL (4.5-11.0)
[2024-07-07 13:11] LABS: INR 1.1 (0.9-1.3); Prothrombin Time 12.1 SECONDS (9.4-12.5)
[2024-07-07 13:13] LABS: PTT Partial Thromboplastin Tim 27 SECONDS (25.1-36.5)
[2024-07-07 13:15] LABS: Albumin 3.6 g/dL (3.5-5.0); Aspartate Aminotransferase 71 IU/L (14-36); BUN Creatinine Ratio 10.6 (6-22); Blood Urea Nitrogen 9 mg/dL (7-17); Carbon Dioxide 19 mmol/L (22-32); Estimated Glomerular Filt Rate > 60 mL/min (>60); Globulin 3.5 g/dL (1.7-4.1); Glucose 177 mg/dL (70-100); HEMOLYSIS < 15 (0-50); Total Protein 7.1 g/dL (6.3-8.2)
[2024-07-07] MEDS: PANTOPRAZOLE 40 MG VIAL 80 MG IV (13:17)
[2024-07-07 13:34] LABS: Alanine Aminotransferase 30 IU/L (<35); Alkaline Phosphatase 105 U/L (38-126); Chloride 106 mmol/L (98-107); Ethanol (ETOH) < 10 mg/dL; Magnesium 1.6 mg/dL (1.6-2.3); Potassium 3.8 mmol/L (3.4-5.1); Sodium 136 mmol/L (137-145)
[2024-07-07 13:56] LABS: Hemoglobin A1C% w Est Avg Glu 4.6 % (4.0-6.0)
--- NOTE | 2024-07-07 13:56 | PC.NURSE ---
Patient stated that her symptoms get worse when she stands up. when she got into her bed she stopped shaking so much. Her blood pressure and heart rate both came down from the values in triage. She denies nausea, headache, hallucinations. provider updated
[2024-07-07] MEDS: LORazepam 2 MG/ML INJ 0.5 MG IV (14:12)
--- NOTE | 2024-07-07 14:12 | PC.NURSE ---
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 a bed side commode was brought to the bed side and the patient was sat on the side of the bed. The patient stated I'm feeling dizzy and then lost all color. I layed the patient back down onto the bed and called for a staff assist. LAURA Beltran was brought to the room and notified.
--- NOTE | 2024-07-07 14:35 | PC.NURSE ---
Patient had BM and passed approx 200cc dark blood and clots per rectum
--- NOTE | 2024-07-07 14:36 | PC.NURSE ---
patient had a large amount approx (200mls) dark red blood.
[2024-07-07 14:44] LABS: Bilirubin Urine UA 1+ (NEGATIVE); Color Urine UA YELLOW; Glucose Urine UA NEGATIVE (Negative); Ketones Urine UA 2+ (NEGATIVE); Leukocyte Esterase Urine UA TRACE (NEGATIVE); Nitrite Urine UA POSITIVE (Negative); Occult Blood Urine UA 2+ (Negative); Protein Urine UA NEGATIVE (Negative); Urobilinogen Urine UA 0.2 E.U./dL (0.2)
[2024-07-07 14:46] LABS: Appearance Urine UA SL CLOUDY; pH Urine UA 8.5 (4.5-8.0)
[2024-07-07 14:48] LABS: UR Morphine/Opiate cutoff 300 Negative (Negative); Ur Creatinine Normal (Normal); Ur Specific Gravity Normal (Normal); Urine Amphetamines Negative (Negative); Urine Barbiturates Negative (Negative); Urine Benzodiazepines Negative (Negative); Urine Cocaine Negative (Negative); Urine MDMA Negative (Negative); Urine Methadone Negative (Negative); Urine Methamphetamines Negative (Negative); Urine Oxycodone Negative (Negative); Urine Phencyclidine Negative (Negative); Urine Tetrahydrocannabinol Negative (Negative); Urine Tricyclic Antidepressant Negative (Negative); Urine pH Normal (Normal)
--- NOTE | 2024-07-07 14:52 | DI.CT.S_ITS ---
PROCEDURE: CT ABDOMEN PELVIS W CON INDICATIONS: Abdominal pain/rectal bleeding TECHNIQUE: After the administration of intravenous contrast, axial sections acquired from the lung bases to the pubic symphysis. Coronal and sagittal reformats were performed. For radiation dose reduction, the following was used: automated exposure control, adjustment of mA and/or kV according to patient size. COMPARISON: [facility], CT, CT ABDOMEN PELVIS W CON, 12/25/2021, 17:56. FINDINGS: Image quality: Diagnostic. Lower Chest: No significant findings. ABDOMEN: Liver: No solid mass. Hepatic steatosis. Liver measures 17.3 cm. Gallbladder: No radiopaque gallstones or wall thickening. Biliary ducts: No biliary dilation. Pancreas: No ductal dilation. Spleen: Size is within normal limits. Adrenal Glands: No adrenal nodules. Kidneys and Ureters: No hydronephrosis. No solid mass. No complex renal cystic lesion which requires follow up. Stomach and Bowel: There is fluid-filled prominence of the sigmoid colon with mild scattered fluid levels without gross dilation within the remaining colon. Scattered diverticula are present without definitively identified inflammation. Peritoneum: No abnormal intraperitoneal fluid. No free air. Ventral Wall: No significant ventral hernia. Abdominal Nodes: No retroperitoneal or mesenteric adenopathy by size criteria. Vessels: Aorta and inferior vena cava are normal in size. PELVIS: Pelvic Organs: 2.1 cm right ovarian cyst. Bladder: Bladder demonstrates a diffusely thickened wall. It is incompletely distended. Pelvic Nodes: No enlarged lymph nodes. Miscellaneous: No inguinal hernias are seen. Bones: No aggressive osseous abnormality. IMPRESSION: Fluid-filled prominence of the sigmoid colon possibly secondary to diarrhea. No source of obstruction is identified. Diverticulosis. Despite incomplete distention, bladder wall is markedly thickened. Recommend correlation to symptoms of cystitis. Dictated by: Lian Douglas M.D. on 07/07/2024 at 15:47 Approved by: Lian Douglas M.D. on 07/07/2024 at 15:51
[2024-07-07 15:04] LABS: Bacteria Urine Many (>30); Culture Indicated Urine Specimen Cultured; Ictotest Urine Negative (Negative); RBC Urine None Seen (0-5/HPF); Squamous Epithelial Cell Urine 1-5 /HPF (0-5/HPF); Urine Volume 10mL (spun); WBC Urine 10-30/HPF (0-5/HPF)
[2024-07-07 15:07] LABS: Pregnancy Test Urine Negative (Negative)
--- NOTE | 2024-07-07 15:50 | PM.HP.1 ---
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 F who has a history of bad alcohol withdrawal, alcohol use disorder presenting to the ED due to bright red blood per rectum at home with associated dizziness. Patient had 3 episodes of passage of blood with clots and one in the ED. She is also requesting medical detox for withdrawal. Patient was vitally stable while in the ED but became dizzy when sitting up. Hgb was stable unchanged significantly from baseline. Alcohol level was <10mg/dL consistent with patients story of last drink night prior to admission. She was calm and exhibiting no major withdrawal symptoms. CT abd was preformed in ED which did not show cirrhosis and demonstrated a Fluid-filled prominence of the sigmoid colon possibly secondary to diarrhea. 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 [facility] Social History Smoking Status: Current every day smoker Meds Home Medications and Allergies Allergies Allergy/AdvReac Type Severity Reaction Status Date / Time No Known Drug Allergies Allergy Verified 07/07/24 14:04 Review of Systems Review of Systems ROS: Yes All systems reviewed with the patient and are negative except as otherwise documented Exam Vital Signs (past 8 hours): - 07/07/24 12:25 07/07/24 12:42 07/07/24 12:43 Temperature 97.5 F L Pulse Rate 135 H 102 H 102 H Respiratory Rate 18 Blood Pressure 118/56 L Pulse Oximetry 100 100 100 Oxygen Delivery Method Room Air 07/07/24 12:43 07/07/24 13:00 07/07/24 13:00 Temperature Pulse Rate 91 H Respiratory Rate 22 Blood Pressure 104/71 115/68 Pulse Oximetry 100 Oxygen Delivery Method 07/07/24 13:30 07/07/24 13:30 07/07/24 14:00 Temperature Pulse Rate 85 90 Respiratory Rate 26 H 29 H Blood Pressure 106/70 Pulse Oximetry 100 100 Oxygen Delivery Method 07/07/24 14:00 07/07/24 14:06 07/07/24 14:06 Temperature Pulse Rate 82 Respiratory Rate 26 H Blood Pressure 108/72 99/62 Pulse Oximetry 100 Oxygen Delivery Method 07/07/24 14:11 07/07/24 14:11 07/07/24 14:15 Temperature Pulse Rate 90 85 Respiratory Rate 26 H 24 Blood Pressure 107/65 Pulse Oximetry 100 100 Oxygen Delivery Method Room Air 07/07/24 14:15 07/07/24 14:20 07/07/24 14:20 Temperature Pulse Rate 83 Respiratory Rate 26 H Blood Pressure 105/62 106/63 Pulse Oximetry 100 Oxygen Delivery Method 07/07/24 14:25 07/07/24 14:25 07/07/24 14:30 Temperature Pulse Rate 92 H 109 H Respiratory Rate 17 31 H Blood Pressure 126/79 Pulse Oximetry 100 100 Oxygen Delivery Method 07/07/24 14:30 07/07/24 14:35 07/07/24 14:35 Temperature Pulse Rate 99 H Respiratory Rate 27 H Blood Pressure 132/85 105/64 Pulse Oximetry 99 Oxygen Delivery Method 07/07/24 14:40 07/07/24 14:40 07/07/24 14:52 Temperature Pulse Rate 92 H 80 Respiratory Rate 31 H 19 Blood Pressure 110/71 Pulse Oximetry 100 100 Oxygen Delivery Method 07/07/24 14:52 07/07/24 14:55 07/07/24 14:55 Temperature Pulse Rate 79 Respiratory Rate 24 Blood Pressure 111/70 109/70 Pulse Oximetry 100 Oxygen Delivery Method 07/07/24 15:00 07/07/24 15:00 07/07/24 15:05 Temperature Pulse Rate 79 80 Respiratory Rate 15 21 Blood Pressure 113/71 Pulse Oximetry 100 100 Oxygen Delivery Method 07/07/24 15:05 07/07/24 15:10 07/07/24 15:10 Temperature Pulse Rate 83 Respiratory Rate 20 Blood Pressure 103/67 94/61 Pulse Oximetry 100 Oxygen Delivery Method 07/07/24 15:16 07/07/24 15:16 07/07/24 15:20 Temperature Pulse Rate 86 91 H Respiratory Rate 14 19 Blood Pressure 103/61 Pulse Oximetry 99 100 Oxygen Delivery Method 07/07/24 15:20 07/07/24 15:25 07/07/24 15:25 Temperature Pulse Rate 90 Respiratory Rate 23 Blood Pressure 100/62 95/60 Pulse Oximetry 100 Oxygen Delivery Method 07/07/24 15:30 07/07/24 15:30 07/07/24 15:36 Temperature Pulse Rate 88 87 Respiratory Rate 16 28 H Blood Pressure 102/61 Pulse Oximetry 98 100 Oxygen Delivery Method 07/07/24 15:36 07/07/24 15:39 07/07/24 15:39 Temperature Pulse Rate 91 H Respiratory Rate 26 H Blood Pressure 94/64 99/70 Pulse Oximetry 99 Oxygen Delivery Method 07/07/24 15:40 07/07/24 15:40 Temperature Pulse Rate 88 Respiratory Rate 20 Blood Pressure 102/69 Pulse Oximetry 99 Oxygen Delivery Method Oxygen Delivery Method Room Air Narrative Exam Narrative: general: well appearing, not in distress lung: CTA B/L, normal effort cardio: RRR abd: soft, non-tender to deep palpation in all quadrants, BS present and normoactive neuro: no focal deficits, alert and oriented psych: pleasant, cooperative Objective Imaging CT Abd/Pelvis: Radiologist's impression: PROCEDURE: CT ABDOMEN PELVIS W CON INDICATIONS: Abdominal pain/rectal bleeding TECHNIQUE: After the administration of intravenous contrast, axial sections acquired from the lung bases to the pubic symphysis. Coronal and sagittal reformats were performed. For radiation dose reduction, the following was used: automated exposure control, adjustment of mA and/or kV according to patient size. COMPARISON: [facility], CT, CT ABDOMEN PELVIS W CON, 12/25/2021, 17:56. FINDINGS: Image quality: Diagnostic. Lower Chest: No significant findings. ABDOMEN: Liver: No solid mass. Hepatic steatosis. Liver measures 17.3 cm. Gallbladder: No radiopaque gallstones or wall thickening. Biliary ducts: No biliary dilation. Pancreas: No ductal dilation. Spleen: Size is within normal limits. Adrenal Glands: No adrenal nodules. Kidneys and Ureters: No hydronephrosis. No solid mass. No complex renal cystic lesion which requires follow up. Stomach and Bowel: There is fluid-filled prominence of the sigmoid colon with mild scattered fluid levels without gross dilation within the remaining colon. Scattered diverticula are present without definitively identified inflammation. Peritoneum: No abnormal intraperitoneal fluid. No free air. Ventral Wall: No significant ventral hernia. Abdominal Nodes: No retroperitoneal or mesenteric adenopathy by size criteria. Vessels: Aorta and inferior vena cava are normal in size. PELVIS: Pelvic Organs: 2.1 cm right ovarian cyst. Bladder: Bladder demonstrates a diffusely thickened wall. It is incompletely distended. Pelvic Nodes: No enlarged lymph nodes. Miscellaneous: No inguinal hernias are seen. Bones: No aggressive osseous abnormality. IMPRESSION: Fluid-filled prominence of the sigmoid colon possibly secondary to diarrhea. No source of obstruction is identified. Diverticulosis. Despite incomplete distention, bladder wall is markedly thickened. Recommend correlation to symptoms of cystitis. Labs 07/07/24 12:48 07/07/24 12:48 Labs: Laboratory Results - last 24 hr 07/07/24 07/07/24 07/07/24 12:48 14:28 14:28 WBC 13.6 H RBC 3.61 L Hgb 12.1 Hct 35.6 L MCV 98.5 MCH 33.4 MCHC 33.9 RDW 12.3 Plt Count 228 Neut % (Auto) 76.0 H Lymph % (Auto) 15.0 L [place] % (Auto) 7.5 Eos % (Auto) 0.2 L Baso % (Auto) 1.3 Neut # (Auto) 71576 H Lymph # (Auto) 2000 [place] # (Auto) 1000 H Eos # (Auto) 0 Baso # (Auto) 200 H PT 12.1 INR 1.1 APTT 27 Sodium 136 L Potassium 3.8 Chloride 106 Carbon Dioxide 19 L BUN 9 Creatinine 0.85 Estimated GFR > 60 BUN/Creatinine Ratio 10.6 Glucose 177 H Hemoglobin A1c 4.6 Calcium 9.0 Magnesium 1.6 Total Bilirubin 2.0 H AST 71 H ALT 30 Alkaline Phosphatase 105 Total Protein 7.1 Albumin 3.6 Globulin 3.5 Albumin/Globulin Ratio 1.0 Urine Color Yellow Urine Appearance Sl cloudy Urine pH 8.5 H Normal Ur Specific [place] 1.010 Urine Protein Negative Urine Glucose (UA) Negative Urine Ketones 2+ H Urine Occult Blood 2+ H Urine Nitrate Positive H Urine Bilirubin 1+ H Ur Bilirubin Confirm Negative Urine Urobilinogen 0.2 Ur Leukocyte Esterase Trace H Urine RBC None seen Urine WBC 10-30/hpf H Ur Squamous Epith Cells 1-5 /hpf Urine Bacteria Many (>30) H Ur Culture Indicated? Specimen cultured Vol Urine Centrifuged 10ml (spun) Urine Test Negative U Opiates 300ng/mL cut Negative Ur Oxycodone Screen Negative Urine Methadone Screen Negative Ur Barbiturates Screen Negative U Tricyclic Antidepress Negative Ur Phencyclidine Scrn Negative Ur Amphetamines Screen Negative U Methamphetamines Scrn Negative Ur MDMA Scrn (Ecstasy) Negative U Benzodiazepines Scrn Negative Urine Cocaine Screen Negative U Marijuana (THC) Screen Negative Urine Specific [place] Normal Ethyl Alcohol < 10 Ur Creatinine Normal Blood Type B Positive Antibody Screen Negative Assessment & Plan Assessment & Plan narrative: #GI Bleed - likely lower -general surgery consult for possible EGD/colonscopy -CBC q8hr -Monitor Hgb, transfuse to maintain >7 -type and screen -IV Protonix #Severe Alcohol Use Disorder with concern for severe withdrawal #Orthostasis -plan to load with phenobarbital to 10mg/kg/IBW (450mg). Will start with 260mg and see how she responds and consider additional doses pending status. -Bolus 1L LR then start LR @100cc/hr -Thiamine + Folic Acid DVT PPx: SCD CODE: child welfare specialist-Based Coding :: [TOTAL MINUTES] spent with patient and on the chart (including review of chart, obtaining history, exam, reviewing outside data, placing orders, documenting exam and treatment plan, and counseling patient) on [DATE].
[2024-07-07] MEDS: LACTATED RINGERS 500 ML 1000 ML IV (17:06)
[2024-07-07] MEDS: PHENobarbital 65 MG/ML VIAL 260 MG IV (17:10)
[2024-07-07] MEDS: THIAMINE 500 MG in SODIUM CHLORIDE 0.9% 100 ML 420 MG IV (17:41)
[2024-07-07] MEDS: LACTATED RINGERS 1,000 ML 100 ML IV (17:42)
--- NOTE | 2024-07-07 17:59 | PM.CN ---
History of Present Illness Consult details Date Patient Seen: 07/07/24 Time Patient Seen: 17:59 Chief complaint: bright red blood per rectum, alcohol withdrawal Narrative: 48F alcoholic admitted for alcohol withdrawl and bright red blood per rectum. Hemodynamically stable. Not on anticoagulation no known history of varices. CT A/P diverticulosis without diverticulitis. Meds Home Medications and Allergies Allergies Allergy/AdvReac Type Severity Reaction Status Date / Time No Known Drug Allergies Allergy Verified 07/07/24 14:04 Exam Vital Signs (past 8 hours): - 07/07/24 12:25 07/07/24 12:42 07/07/24 12:43 Temperature 97.5 F L Pulse Rate 135 H 102 H 102 H Respiratory Rate 18 Blood Pressure 118/56 L Pulse Oximetry 100 100 100 Oxygen Delivery Method Room Air 07/07/24 12:43 07/07/24 13:00 07/07/24 13:00 Temperature Pulse Rate 91 H Respiratory Rate 22 Blood Pressure 104/71 115/68 Pulse Oximetry 100 Oxygen Delivery Method 07/07/24 13:30 07/07/24 13:30 07/07/24 14:00 Temperature Pulse Rate 85 90 Respiratory Rate 26 H 29 H Blood Pressure 106/70 Pulse Oximetry 100 100 Oxygen Delivery Method 07/07/24 14:00 07/07/24 14:06 07/07/24 14:06 Temperature Pulse Rate 82 Respiratory Rate 26 H Blood Pressure 108/72 99/62 Pulse Oximetry 100 Oxygen Delivery Method 07/07/24 14:11 07/07/24 14:11 07/07/24 14:15 Temperature Pulse Rate 90 85 Respiratory Rate 26 H 24 Blood Pressure 107/65 Pulse Oximetry 100 100 Oxygen Delivery Method Room Air 07/07/24 14:15 07/07/24 14:20 07/07/24 14:20 Temperature Pulse Rate 83 Respiratory Rate 26 H Blood Pressure 105/62 106/63 Pulse Oximetry 100 Oxygen Delivery Method 07/07/24 14:25 07/07/24 14:25 07/07/24 14:30 Temperature Pulse Rate 92 H 109 H Respiratory Rate 17 31 H Blood Pressure 126/79 Pulse Oximetry 100 100 Oxygen Delivery Method 07/07/24 14:30 07/07/24 14:35 07/07/24 14:35 Temperature Pulse Rate 99 H Respiratory Rate 27 H Blood Pressure 132/85 105/64 Pulse Oximetry 99 Oxygen Delivery Method 07/07/24 14:40 07/07/24 14:40 07/07/24 14:52 Temperature Pulse Rate 92 H 80 Respiratory Rate 31 H 19 Blood Pressure 110/71 Pulse Oximetry 100 100 Oxygen Delivery Method 07/07/24 14:52 07/07/24 14:55 07/07/24 14:55 Temperature Pulse Rate 79 Respiratory Rate 24 Blood Pressure 111/70 109/70 Pulse Oximetry 100 Oxygen Delivery Method 07/07/24 15:00 07/07/24 15:00 07/07/24 15:05 Temperature Pulse Rate 79 80 Respiratory Rate 15 21 Blood Pressure 113/71 Pulse Oximetry 100 100 Oxygen Delivery Method 07/07/24 15:05 07/07/24 15:10 07/07/24 15:10 Temperature Pulse Rate 83 Respiratory Rate 20 Blood Pressure 103/67 94/61 Pulse Oximetry 100 Oxygen Delivery Method 07/07/24 15:16 07/07/24 15:16 07/07/24 15:20 Temperature Pulse Rate 86 91 H Respiratory Rate 14 19 Blood Pressure 103/61 Pulse Oximetry 99 100 Oxygen Delivery Method 07/07/24 15:20 07/07/24 15:25 07/07/24 15:25 Temperature Pulse Rate 90 Respiratory Rate 23 Blood Pressure 100/62 95/60 Pulse Oximetry 100 Oxygen Delivery Method 07/07/24 15:30 07/07/24 15:30 07/07/24 15:36 Temperature Pulse Rate 88 87 Respiratory Rate 16 28 H Blood Pressure 102/61 Pulse Oximetry 98 100 Oxygen Delivery Method 07/07/24 15:36 07/07/24 15:39 07/07/24 15:39 Temperature Pulse Rate 91 H Respiratory Rate 26 H Blood Pressure 94/64 99/70 Pulse Oximetry 99 Oxygen Delivery Method 07/07/24 15:40 07/07/24 15:40 07/07/24 15:45 Temperature Pulse Rate 88 90 Respiratory Rate 20 14 Blood Pressure 102/69 Pulse Oximetry 99 94 Oxygen Delivery Method 07/07/24 15:45 07/07/24 15:50 07/07/24 15:50 Temperature Pulse Rate 87 Respiratory Rate 18 Blood Pressure 114/72 112/71 Pulse Oximetry 94 Oxygen Delivery Method 07/07/24 15:55 07/07/24 15:55 07/07/24 16:00 Temperature Pulse Rate 87 90 Respiratory Rate 17 15 Blood Pressure 116/72 Pulse Oximetry 96 97 Oxygen Delivery Method 07/07/24 16:00 07/07/24 16:00 07/07/24 16:05 Temperature Pulse Rate 88 Respiratory Rate 14 Blood Pressure 108/71 Pulse Oximetry 98 Oxygen Delivery Method Room Air 07/07/24 16:05 07/07/24 16:10 07/07/24 16:10 Temperature Pulse Rate 88 Respiratory Rate 21 Blood Pressure 106/68 113/71 Pulse Oximetry 97 Oxygen Delivery Method 07/07/24 16:30 07/07/24 16:33 07/07/24 17:00 Temperature 97.8 F Pulse Rate 99 H 97 H Respiratory Rate 20 25 H Blood Pressure Pulse Oximetry 99 99 Oxygen Delivery Method 07/07/24 17:27 07/07/24 17:27 07/07/24 17:30 Temperature Pulse Rate 93 H Respiratory Rate 32 H Blood Pressure 122/78 109/71 Pulse Oximetry 99 Oxygen Delivery Method 07/07/24 17:30 Temperature Pulse Rate 90 Respiratory Rate 19 Blood Pressure Pulse Oximetry 99 Oxygen Delivery Method Oxygen Delivery Method Room Air Narrative Exam Narrative: Gen-Adult womanalert and oriented dutch speaking only Abdomen-soft non tender Objective Labs 07/07/24 12:48 07/07/24 12:48 Labs: Laboratory Results - last 24 hr 07/07/24 07/07/24 07/07/24 12:48 14:28 14:28 WBC 13.6 H RBC 3.61 L Hgb 12.1 Hct 35.6 L MCV 98.5 MCH 33.4 MCHC 33.9 RDW 12.3 Plt Count 228 Neut % (Auto) 76.0 H Lymph % (Auto) 15.0 L [place] % (Auto) 7.5 Eos % (Auto) 0.2 L Baso % (Auto) 1.3 Neut # (Auto) 54005 H Lymph # (Auto) 2000 [place] # (Auto) 1000 H Eos # (Auto) 0 Baso # (Auto) 200 H PT 12.1 INR 1.1 APTT 27 Sodium 136 L Potassium 3.8 Chloride 106 Carbon Dioxide 19 L BUN 9 Creatinine 0.85 Estimated GFR > 60 BUN/Creatinine Ratio 10.6 Glucose 177 H Hemoglobin A1c 4.6 Calcium 9.0 Magnesium 1.6 Total Bilirubin 2.0 H AST 71 H ALT 30 Alkaline Phosphatase 105 Total Protein 7.1 Albumin 3.6 Globulin 3.5 Albumin/Globulin Ratio 1.0 Urine Color Yellow Urine Appearance Sl cloudy Urine pH 8.5 H Normal Ur Specific [place] 1.010 Urine Protein Negative Urine Glucose (UA) Negative Urine Ketones 2+ H Urine Occult Blood 2+ H Urine Nitrate Positive H Urine Bilirubin 1+ H Ur Bilirubin Confirm Negative Urine Urobilinogen 0.2 Ur Leukocyte Esterase Trace H Urine RBC None seen Urine WBC 10-30/hpf H Ur Squamous Epith Cells 1-5 /hpf Urine Bacteria Many (>30) H Ur Culture Indicated? Specimen cultured Vol Urine Centrifuged 10ml (spun) Urine Test Negative U Opiates 300ng/mL cut Negative Ur Oxycodone Screen Negative Urine Methadone Screen Negative Ur Barbiturates Screen Negative U Tricyclic Antidepress Negative Ur Phencyclidine Scrn Negative Ur Amphetamines Screen Negative U Methamphetamines Scrn Negative Ur MDMA Scrn (Ecstasy) Negative U Benzodiazepines Scrn Negative Urine Cocaine Screen Negative U Marijuana (THC) Screen Negative Urine Specific [place] Normal Ethyl Alcohol < 10 Ur Creatinine Normal Blood Type B Positive Antibody Screen Negative [facility] Tobacco & Substance Use Smoking Status: Current every day smoker Assessment & Plan Assessment and plan (1) Rectal bleeding: Problem details: 48F alcoholic admitted with alcohol withdrawal and GI bleed. Hemodynamically stable. Presumably GIB is lower probably diverticular and will likely stop spontaneously. No plan at this time for colonoscopy will reevaluate tomorrow. Transfuse as needed PPI Status: Acute Time-Based Coding :: [TOTAL MINUTES] spent with patient and on the chart (including review of chart, obtaining history, exam, reviewing outside data, placing orders, documenting exam and treatment plan, and counseling patient) on [DATE].
[2024-07-07 18:02] LABS: Hematocrit 29.8 % (36-46); Hemoglobin 10.1 g/dL (12.0-16.0); Mean Corpuscular Hemoglobin 33.8 PG (26-34); Mean Corpuscular Volume 99.4 fL (80-100); Platelet Count 165 X10^3/uL (150-400); Red Blood Cell Count 2.99 X10^6/uL (4.0-5.2); Red Cell Distribution Width 12.1 % (11.6-14.8); White Blood Cell Count 10.3 X10^3/uL (4.5-11.0)
[2024-07-07 18:14] LABS: INR 1.1 (0.9-1.3); Prothrombin Time 12.9 SECONDS (9.4-12.5)
[2024-07-07 18:16] LABS: PTT Partial Thromboplastin Tim 26 SECONDS (25.1-36.5)
[2024-07-07] MEDS: PHENobarbital 130 MG/ML VIAL IV (18:58)
[2024-07-07] MEDS: SODIUM CHLORIDE 0.9% FLUSH 10 ML IV (21:05)
[2024-07-07 21:29] LABS: Alanine Aminotransferase 22 IU/L (<35); Albumin 2.8 g/dL (3.5-5.0); Albumin Globulin Ratio 0.9 (1.0-2.8); Alkaline Phosphatase 76 U/L (38-126); Aspartate Aminotransferase 60 IU/L (14-36); BUN Creatinine Ratio 14.5 (6-22); Bilirubin Total 1.6 mg/dL (0.2-1.3); Blood Urea Nitrogen 11 mg/dL (7-17); Calcium 8.7 mg/dL (8.4-10.2); Carbon Dioxide 23 mmol/L (22-32); Chloride 108 mmol/L (98-107); Estimated Glomerular Filt Rate > 60 mL/min (>60); Globulin 3.1 g/dL (1.7-4.1); Glucose 119 mg/dL (70-100); HEMOLYSIS < 15 (0-50); Potassium 3.7 mmol/L (3.4-5.1); Sodium 133 mmol/L (137-145); Total Protein 5.9 g/dL (6.3-8.2)
[2024-07-07 23:26] LABS: Mean Corpuscular HGB Conc 34.6 % (30-36); Mean Corpuscular Hemoglobin 34.6 PG (26-34); Mean Corpuscular Volume 100.1 fL (80-100); Platelet Count 135 X10^3/uL (150-400); Red Cell Distribution Width 12.2 % (11.6-14.8); White Blood Cell Count 9.8 X10^3/uL (4.5-11.0)
[2024-07-08] VITALS (71 sets, daily range): BP systolic 82–127; BP diastolic 50–79; PULSE 69–126; RESP 3–34; TEMP 36.1–37.3; O2SAT 96–100
[2024-07-08] MEDS: LACTATED RINGERS 1,000 ML 100 ML IV ×2 (04:01→16:08)
[2024-07-08 06:06] LABS: Add Manual Diff / Slide Review NO; Basophils Absolute Auto 100 /uL (0-100); Basophils Percent Auto 0.8 % (0-2); Eosinophils Absolute Auto 500 /uL (0-450); Eosinophils Percent Auto 5.8 % (2-4); Hematocrit 23.6 % (36-46); Hemoglobin 8.1 g/dL (12.0-16.0); Lymphocytes Absolute Auto 2100 /uL (1100-4500); Lymphocytes Percent Auto 26.2 % (25-40); Mean Corpuscular HGB Conc 34.4 % (30-36); Mean Corpuscular Hemoglobin 34.6 PG (26-34); Mean Corpuscular Volume 100.6 fL (80-100); Monocytes Absolute Auto 700 /uL (0-900); Monocytes Percent Auto 8.7 % (3-14); Neutrophils Absolute Auto 4700 /uL (1500-7000); Neutrophils Percent Auto 58.5 % (50-75); Platelet Count 125 X10^3/uL (150-400); Red Blood Cell Count 2.35 X10^6/uL (4.0-5.2); Red Cell Distribution Width 12.2 % (11.6-14.8)
--- NOTE | 2024-07-08 06:22 | PC.NURSE ---
Patient current H/H 8.1/23.6, asymptomatic, vital signs stable, denies c/o pain or discomfort, LR infusing at 100 ml/hr.
[2024-07-08 06:24] LABS: BUN Creatinine Ratio 14.3 (6-22); Blood Urea Nitrogen 11 mg/dL (7-17); Calcium 8.1 mg/dL (8.4-10.2); Carbon Dioxide 25 mmol/L (22-32); Chloride 108 mmol/L (98-107); Estimated Glomerular Filt Rate > 60 mL/min (>60); Glucose 94 mg/dL (70-100); HEMOLYSIS < 15 (0-50); Potassium 3.2 mmol/L (3.4-5.1); Sodium 133 mmol/L (137-145)
[2024-07-08] MEDS: MAGNESIUM SULFATE 2 GM/50 ML PIGGYBACK IV (08:47)
[2024-07-08] MEDS: MULTIVITAMIN 1 TABLET 1 TAB PO (08:47)
[2024-07-08] MEDS: POTASSIUM CHLORIDE IN WATER 10 MEQ/100 ML PIGGYBACK 100 MEQ IV ×2 (08:49→11:39)
[2024-07-08] MEDS: SODIUM CHLORIDE 0.9% FLUSH 10 ML IV ×2 (12:10→21:10)
[2024-07-08] MEDS: POTASSIUM CHLORIDE 20 MEQ TAB 40 MEQ PO ×2 (12:41→18:43)
--- NOTE | 2024-07-08 13:05 | P.PN_ITS ---
Subjective Subjective Interval history: no signs of withdrawal, had large bloody BM Exam Vital Signs (past 8 hours): - 07/08/24 05:30 07/08/24 05:30 07/08/24 06:00 Temperature Pulse Rate 72 Respiratory Rate 17 Blood Pressure 116/63 100/59 L Pulse Oximetry 99 Oxygen Delivery Method Oxygen Flow Rate 07/08/24 06:00 07/08/24 06:30 07/08/24 06:30 Temperature Pulse Rate 81 70 Respiratory Rate 16 3 L Blood Pressure 108/60 Pulse Oximetry 99 99 Oxygen Delivery Method Oxygen Flow Rate 0 07/08/24 07:00 07/08/24 07:00 07/08/24 07:04 Temperature Pulse Rate 71 Respiratory Rate 15 Blood Pressure 98/56 L Pulse Oximetry 100 Oxygen Delivery Method Room Air Oxygen Flow Rate 07/08/24 07:04 07/08/24 07:30 07/08/24 07:30 Temperature Pulse Rate 78 74 Respiratory Rate 20 17 Blood Pressure 107/71 Pulse Oximetry 99 99 Oxygen Delivery Method Oxygen Flow Rate 07/08/24 08:00 07/08/24 08:00 07/08/24 08:30 Temperature Pulse Rate 107 H Respiratory Rate 24 Blood Pressure 116/79 116/63 Pulse Oximetry 99 Oxygen Delivery Method Oxygen Flow Rate 07/08/24 08:30 07/08/24 09:00 07/08/24 09:00 Temperature Pulse Rate 95 H 82 Respiratory Rate 15 16 Blood Pressure 101/61 Pulse Oximetry 97 99 Oxygen Delivery Method Oxygen Flow Rate 07/08/24 09:30 07/08/24 09:30 07/08/24 09:40 Temperature 98.1 F Pulse Rate 81 82 Respiratory Rate 16 16 Blood Pressure 94/56 L 94/56 L Pulse Oximetry 98 Oxygen Delivery Method Oxygen Flow Rate 07/08/24 09:41 07/08/24 09:41 07/08/24 09:55 Temperature 98.1 F Pulse Rate 84 89 Respiratory Rate 27 H 16 Blood Pressure 99/61 101/63 Pulse Oximetry 98 Oxygen Delivery Method Oxygen Flow Rate 07/08/24 10:00 07/08/24 10:00 07/08/24 10:04 Temperature Pulse Rate 83 Respiratory Rate 21 Blood Pressure 95/63 101/63 Pulse Oximetry 100 Oxygen Delivery Method Oxygen Flow Rate 07/08/24 10:04 07/08/24 10:30 07/08/24 10:30 Temperature Pulse Rate 78 74 Respiratory Rate 17 21 Blood Pressure 98/68 Pulse Oximetry 100 100 Oxygen Delivery Method Oxygen Flow Rate 07/08/24 11:00 07/08/24 11:00 07/08/24 11:30 Temperature Pulse Rate 71 Respiratory Rate 17 Blood Pressure 100/68 114/71 Pulse Oximetry 100 Oxygen Delivery Method Oxygen Flow Rate 07/08/24 11:30 07/08/24 11:43 07/08/24 11:43 Temperature Pulse Rate 71 70 Respiratory Rate 18 18 Blood Pressure 118/71 Pulse Oximetry 98 99 Oxygen Delivery Method Oxygen Flow Rate 07/08/24 12:00 07/08/24 12:00 07/08/24 12:05 Temperature 99.1 F Pulse Rate 82 69 Respiratory Rate 13 18 Blood Pressure 110/63 118/71 Pulse Oximetry 99 Oxygen Delivery Method Oxygen Flow Rate 07/08/24 12:30 07/08/24 12:30 Temperature Pulse Rate 76 Respiratory Rate 17 Blood Pressure 122/76 Pulse Oximetry 97 Oxygen Delivery Method Oxygen Flow Rate Oxygen Delivery Method Room Air Oxygen Flow Rate 0 Narrative Exam Narrative: general: well appearing, not in distress lung: CTA B/L, normal effort cardio: RRR abd: soft, non-tender to deep palpation in all quadrants, BS present and normoactive neuro: no focal deficits, alert and oriented psych: pleasant, cooperative Objective Labs 07/08/24 05:50 07/08/24 05:50 Labs: Laboratory Results - last 24 hr 07/07/24 07/07/24 07/07/24 12:48 14:28 14:28 WBC RBC Hgb Hct MCV MCH MCHC RDW Plt Count Neut % (Auto) Lymph % (Auto) [place] % (Auto) Eos % (Auto) Baso % (Auto) Neut # (Auto) Lymph # (Auto) [place] # (Auto) Eos # (Auto) Baso # (Auto) PT 12.1 INR 1.1 APTT 27 Sodium 136 L Potassium 3.8 Chloride 106 Carbon Dioxide 19 L BUN 9 Creatinine 0.85 Estimated GFR > 60 BUN/Creatinine Ratio 10.6 Glucose 177 H Hemoglobin A1c 4.6 Calcium 9.0 Magnesium 1.6 Total Bilirubin 2.0 H AST 71 H ALT 30 Alkaline Phosphatase 105 Total Protein 7.1 Albumin 3.6 Globulin 3.5 Albumin/Globulin Ratio 1.0 Urine Color Yellow Urine Appearance Sl cloudy Urine pH 8.5 H Normal Ur Specific [place] 1.010 Urine Protein Negative Urine Glucose (UA) Negative Urine Ketones 2+ H Urine Occult Blood 2+ H Urine Nitrate Positive H Urine Bilirubin 1+ H Ur Bilirubin Confirm Negative Urine Urobilinogen 0.2 Ur Leukocyte Esterase Trace H Urine RBC None seen Urine WBC 10-30/hpf H Ur Squamous Epith Cells 1-5 /hpf Urine Bacteria Many (>30) H Ur Culture Indicated? Specimen cultured Vol Urine Centrifuged 10ml (spun) Urine Test Negative U Opiates 300ng/mL cut Negative Ur Oxycodone Screen Negative Urine Methadone Screen Negative Ur Barbiturates Screen Negative U Tricyclic Antidepress Negative Ur Phencyclidine Scrn Negative Ur Amphetamines Screen Negative U Methamphetamines Scrn Negative Ur MDMA Scrn (Ecstasy) Negative U Benzodiazepines Scrn Negative Urine Cocaine Screen Negative U Marijuana (THC) Screen Negative Urine Specific [place] Normal Ethyl Alcohol < 10 Ur Creatinine Normal Blood Type B Positive Antibody Screen Negative Crossmatch 07/07/24 07/07/24 07/07/24 17:30 17:45 23:17 WBC 10.3 9.8 RBC 2.99 L 2.60 L Hgb 10.1 L 9.0 L Hct 29.8 L 26.0 L MCV 99.4 100.1 H MCH 33.8 34.6 H MCHC 34.0 34.6 RDW 12.1 12.2 Plt Count 165 135 L Neut % (Auto) Lymph % (Auto) [place] % (Auto) Eos % (Auto) Baso % (Auto) Neut # (Auto) Lymph # (Auto) [place] # (Auto) Eos # (Auto) Baso # (Auto) PT 12.9 H INR 1.1 APTT 26 Sodium 133 L Potassium 3.7 Chloride 108 H Carbon Dioxide 23 BUN 11 Creatinine 0.76 Estimated GFR > 60 BUN/Creatinine Ratio 14.5 Glucose 119 H Hemoglobin A1c Calcium 8.7 Magnesium Total Bilirubin 1.6 H AST 60 H ALT 22 Alkaline Phosphatase 76 Total Protein 5.9 L Albumin 2.8 L Globulin 3.1 Albumin/Globulin Ratio 0.9 L Urine Color Urine Appearance Urine pH Ur Specific [place] Urine Protein Urine Glucose (UA) Urine Ketones Urine Occult Blood Urine Nitrate Urine Bilirubin Ur Bilirubin Confirm Urine Urobilinogen Ur Leukocyte Esterase Urine RBC Urine WBC Ur Squamous Epith Cells Urine Bacteria Ur Culture Indicated? Vol Urine Centrifuged Urine Test U Opiates 300ng/mL cut Ur Oxycodone Screen Urine Methadone Screen Ur Barbiturates Screen U Tricyclic Antidepress Ur Phencyclidine Scrn Ur Amphetamines Screen U Methamphetamines Scrn Ur MDMA Scrn (Ecstasy) U Benzodiazepines Scrn Urine Cocaine Screen U Marijuana (THC) Screen Urine Specific [place] Ethyl Alcohol Ur Creatinine Blood Type B Positive Antibody Screen Negative Crossmatch See Detail 07/08/24 05:50 WBC 8.0 RBC 2.35 L Hgb 8.1 L Hct 23.6 L MCV 100.6 H MCH 34.6 H MCHC 34.4 RDW 12.2 Plt Count 125 L Neut % (Auto) 58.5 Lymph % (Auto) 26.2 [place] % (Auto) 8.7 Eos % (Auto) 5.8 H Baso % (Auto) 0.8 Neut # (Auto) 4700 Lymph # (Auto) 2100 [place] # (Auto) 700 Eos # (Auto) 500 H Baso # (Auto) 100 PT INR APTT Sodium 133 L Potassium 3.2 L Chloride 108 H Carbon Dioxide 25 BUN 11 Creatinine 0.77 Estimated GFR > 60 BUN/Creatinine Ratio 14.3 Glucose 94 Hemoglobin A1c Calcium 8.1 L Magnesium Total Bilirubin AST ALT Alkaline Phosphatase Total Protein Albumin Globulin Albumin/Globulin Ratio Urine Color Urine Appearance Urine pH Ur Specific [place] Urine Protein Urine Glucose (UA) Urine Ketones Urine Occult Blood Urine Nitrate Urine Bilirubin Ur Bilirubin Confirm Urine Urobilinogen Ur Leukocyte Esterase Urine RBC Urine WBC Ur Squamous Epith Cells Urine Bacteria Ur Culture Indicated? Vol Urine Centrifuged Urine Test U Opiates 300ng/mL cut Ur Oxycodone Screen Urine Methadone Screen Ur Barbiturates Screen U Tricyclic Antidepress Ur Phencyclidine Scrn Ur Amphetamines Screen U Methamphetamines Scrn Ur MDMA Scrn (Ecstasy) U Benzodiazepines Scrn Urine Cocaine Screen U Marijuana (THC) Screen Urine Specific [place] Ethyl Alcohol Ur Creatinine Blood Type Antibody Screen Crossmatch [facility] Social History Smoking Status: Current every day smoker Assessment & Plan Assessment & Plan narrative: Patient is knik andorran speaker here with daughter, they declined rehabilitation technician with daughter translating encounter 48 y.o. F who has a history of bad alcohol withdrawal, alcohol use disorder presenting to the ED due to bright red blood per rectum at home with associated dizziness. Patient had 3 episodes of passage of blood with clots and one in the ED. She is also requesting medical detox for withdrawal. Patient was vitally stable while in the ED but became dizzy when sitting up. Hgb was stable unchanged significantly from baseline. Alcohol level was <10mg/dL consistent with patients story of last drink night prior to admission. She was calm and exhibiting no major withdrawal symptoms. CT abd was preformed in ED which did not show cirrhosis and demonstrated a likely bleed in sigmoid colon. 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 can continued to load up with soft stop at 15mg/kg/IBW if symptoms develop -Bolus 1L LR then start LR @100cc/hr -Thiamine + Folic Acid DVT PPx: SCD CODE: steelworker-Based Coding :: [TOTAL MINUTES] spent with patient and on the chart (including review of chart, obtaining history, exam, reviewing outside data, placing orders, documenting exam and treatment plan, and counseling patient) on [DATE]. Quality VTE Deep Vein Thrombosis/Pulmonary Embolism Present on Admission: No
[2024-07-08 15:11] LABS: Hematocrit 22.7 % (36-46); Hemoglobin 7.9 g/dL (12.0-16.0); Mean Corpuscular HGB Conc 34.7 % (30-36); Mean Corpuscular Hemoglobin 33.7 PG (26-34); Platelet Count 117 X10^3/uL (150-400); Red Blood Cell Count 2.34 X10^6/uL (4.0-5.2); Red Cell Distribution Width 14.2 % (11.6-14.8); White Blood Cell Count 9.5 X10^3/uL (4.5-11.0)
--- NOTE | 2024-07-08 18:16 | PC.NURSE ---
1330 Pt had large (1100ml) bloody BM with numerous clots. notified and orders received for 2 units PRBCs. urgently
[2024-07-08] MEDS: PANTOPRAZOLE DR 20 MG TABLET 40 MG PO (21:33)
[2024-07-08 22:16] LABS: Hemoglobin 9.8 g/dL (12.0-16.0)
[2024-07-09] VITALS (62 sets, daily range): BP systolic 45–139; BP diastolic 19–89; PULSE 70–125; RESP 10–27; TEMP 36.4–37.1; O2SAT 81–100
[2024-07-09] MEDS: LORazepam 2 MG/ML INJ IV (04:36)
[2024-07-09] MEDS: LACTATED RINGERS 500 ML 1000 ML IV (04:55)
[2024-07-09 05:40] LABS: Add Manual Diff / Slide Review NO; Basophils Absolute Auto 0 /uL (0-100); Basophils Percent Auto 0.3 % (0-2); Eosinophils Absolute Auto 200 /uL (0-450); Hematocrit 21.2 % (36-46); Hemoglobin 7.3 g/dL (12.0-16.0); Lymphocytes Absolute Auto 1100 /uL (1100-4500); Lymphocytes Percent Auto 9.6 % (25-40); Mean Corpuscular HGB Conc 34.4 % (30-36); Mean Corpuscular Hemoglobin 32.3 PG (26-34); Monocytes Absolute Auto 700 /uL (0-900); Monocytes Percent Auto 6.3 % (3-14); Neutrophils Absolute Auto 9000 /uL (1500-7000); Neutrophils Percent Auto 81.8 % (50-75); Platelet Count 96 X10^3/uL (150-400); Red Blood Cell Count 2.26 X10^6/uL (4.0-5.2); Red Cell Distribution Width 16.5 % (11.6-14.8)
[2024-07-09 06:04] LABS: BUN Creatinine Ratio 11.4 (6-22); Blood Urea Nitrogen 9 mg/dL (7-17); Calcium 7.3 mg/dL (8.4-10.2); Carbon Dioxide 18 mmol/L (22-32); Chloride 113 mmol/L (98-107); Estimated Glomerular Filt Rate > 60 mL/min (>60); Glucose 104 mg/dL (70-100); HEMOLYSIS < 15 (0-50); Potassium 4.1 mmol/L (3.4-5.1); Sodium 133 mmol/L (137-145)
[2024-07-09] MEDS: LACTATED RINGERS 1,000 ML 100 ML IV (06:58)
--- NOTE | 2024-07-09 07:09 | P.PN_ITS ---
Subjective Subjective Interval history: Bleeding profusely Overnight. She received 3 units of blood last night, and is receiving 2 this morning. She is on low-dose norepinephrine. Subjective: She denies pain. Exam Vital Signs (past 8 hours): - 07/08/24 23:30 07/09/24 00:00 07/09/24 00:00 Temperature Pulse Rate 79 75 75 Respiratory Rate 18 19 19 Blood Pressure 87/59 L Pulse Oximetry 97 97 97 07/09/24 00:29 07/09/24 00:29 07/09/24 00:30 Temperature Pulse Rate 103 H 104 H Respiratory Rate 18 24 Blood Pressure 87/59 L Pulse Oximetry 98 96 07/09/24 01:00 07/09/24 01:00 07/09/24 01:04 Temperature Pulse Rate 81 81 Respiratory Rate 19 19 Blood Pressure 91/54 L 82/52 L Pulse Oximetry 98 98 07/09/24 01:04 07/09/24 01:05 07/09/24 01:05 Temperature Pulse Rate 87 91 H Respiratory Rate 17 25 H Blood Pressure 91/54 L Pulse Oximetry 97 98 07/09/24 01:30 07/09/24 02:00 07/09/24 02:00 Temperature Pulse Rate 85 81 Respiratory Rate 19 18 Blood Pressure 111/60 Pulse Oximetry 97 98 07/09/24 02:30 07/09/24 03:00 07/09/24 03:00 Temperature Pulse Rate 85 106 H Respiratory Rate 25 H 20 Blood Pressure 92/52 L Pulse Oximetry 98 99 07/09/24 03:12 07/09/24 03:12 07/09/24 03:30 Temperature Pulse Rate 100 H 125 H Respiratory Rate Blood Pressure 104/55 L Pulse Oximetry 100 100 07/09/24 04:00 07/09/24 04:01 07/09/24 04:01 Temperature Pulse Rate 89 87 Respiratory Rate 23 25 H Blood Pressure 48/19 L Pulse Oximetry 100 96 07/09/24 04:02 07/09/24 04:02 07/09/24 04:04 Temperature Pulse Rate 88 91 H Respiratory Rate 27 H 24 Blood Pressure 45/23 L Pulse Oximetry 99 81 L 07/09/24 04:05 07/09/24 04:05 07/09/24 04:06 Temperature Pulse Rate 89 88 Respiratory Rate 18 19 Blood Pressure 59/27 L Pulse Oximetry 99 100 09/13/24 04:06 07/09/24 04:09 07/09/24 04:09 Temperature Pulse Rate 85 Respiratory Rate 21 Blood Pressure 48/28 L 51/27 L Pulse Oximetry 100 07/09/24 04:12 07/09/24 04:12 07/09/24 04:13 Temperature Pulse Rate 91 H 88 Respiratory Rate 17 24 Blood Pressure 65/38 L Pulse Oximetry 100 100 07/09/24 04:13 07/09/24 04:15 07/09/24 04:15 Temperature Pulse Rate 84 Respiratory Rate 21 Blood Pressure 67/35 L 66/39 L Pulse Oximetry 99 07/09/24 04:20 07/09/24 04:20 07/09/24 04:25 Temperature Pulse Rate 82 Respiratory Rate 20 Blood Pressure 73/42 L 72/42 L Pulse Oximetry 99 07/09/24 04:25 07/09/24 04:30 07/09/24 04:30 Temperature Pulse Rate 84 81 Respiratory Rate 22 20 Blood Pressure 73/40 L Pulse Oximetry 100 100 07/09/24 04:45 07/09/24 04:45 07/09/24 05:00 Temperature Pulse Rate 85 Respiratory Rate 22 Blood Pressure 75/44 L 78/49 L Pulse Oximetry 100 07/09/24 05:00 07/09/24 05:15 07/09/24 05:15 Temperature Pulse Rate 85 89 Respiratory Rate 19 20 Blood Pressure 77/44 L Pulse Oximetry 100 100 07/09/24 05:30 07/09/24 05:30 07/09/24 05:45 Temperature Pulse Rate 90 Respiratory Rate 20 Blood Pressure 79/49 L 71/45 L Pulse Oximetry 100 07/09/24 05:45 07/09/24 06:00 07/09/24 06:00 Temperature Pulse Rate 90 88 Respiratory Rate 20 19 Blood Pressure 64/45 L Pulse Oximetry 100 100 07/09/24 06:15 07/09/24 06:15 07/09/24 06:30 Temperature 97.5 F L Pulse Rate 87 94 H Respiratory Rate 20 10 L Blood Pressure 91/54 L 82/52 L Pulse Oximetry 100 07/09/24 06:47 07/09/24 06:57 Temperature 97.6 F Pulse Rate 86 88 Respiratory Rate 20 21 Blood Pressure 80/53 L Pulse Oximetry Oxygen Delivery Method Room Air Oxygen Flow Rate 0 Narrative Exam Narrative: NAD, alert and oriented. Fluent speech. Lungs are clear, normal rate and effort. Heart is regular, no murmur gallop or rub. Abdomen is soft, non distended. Extremities are free of edema. Objective Labs 07/09/24 05:20 07/09/24 05:20 Labs: Laboratory Results - last 24 hr 07/07/24 07/08/24 07/08/24 17:45 15:05 22:09 WBC 9.5 RBC 2.34 L Hgb 7.9 L 9.8 L Hct 22.7 L 28.0 L MCV 97.0 D MCH 33.7 MCHC 34.7 RDW 14.2 Plt Count 117 L Neut % (Auto) Lymph % (Auto) [place] % (Auto) Eos % (Auto) Baso % (Auto) Neut # (Auto) Lymph # (Auto) [place] # (Auto) Eos # (Auto) Baso # (Auto) Sodium Potassium Chloride Carbon Dioxide BUN Creatinine Estimated GFR BUN/Creatinine Ratio Glucose Calcium Blood Type B Positive Antibody Screen Negative Crossmatch See Detail 07/09/24 05:20 WBC 11.0 RBC 2.26 L Hgb 7.3 L Hct 21.2 L MCV 94.0 D MCH 32.3 MCHC 34.4 RDW 16.5 H Plt Count 96 L Neut % (Auto) 81.8 H D Lymph % (Auto) 9.6 L [place] % (Auto) 6.3 Eos % (Auto) 2.0 Baso % (Auto) 0.3 Neut # (Auto) 9000 H Lymph # (Auto) 1100 [place] # (Auto) 700 Eos # (Auto) 200 Baso # (Auto) 0 Sodium 133 L Potassium 4.1 Chloride 113 H Carbon Dioxide 18 L BUN 9 Creatinine 0.79 Estimated GFR > 60 BUN/Creatinine Ratio 11.4 Glucose 104 H Calcium 7.3 L Blood Type Antibody Screen Crossmatch [facility] Social History Smoking Status: Current every day smoker Assessment & Plan Assessment & Plan narrative: 1. Lower GI Bleed, likely diverticular bleed, present on admission and active. 2. Acute blood loss anemia, present on admission and active. 3. Severe Alcohol Use Disorder with concern for severe withdrawal, present on admission and active. PLAN: -had 3 units of blood last night, 2 more units now. -CT angiogram of the abdomen and pelvis if patient stabilizes. -attempt transfer if she stabilizes for further intervention. -discuss with surgery. -exploring possible transfer to [facility]. This is a high probability that she may need IR intervention. 40 minutes of critical care time spent. Time-Based Coding :: [TOTAL MINUTES] spent with patient and on the chart (including review of chart, obtaining history, exam, reviewing outside data, placing orders, documenting exam and treatment plan, and counseling patient) on [DATE]. Quality VTE Deep Vein Thrombosis/Pulmonary Embolism Present on Admission: No
[2024-07-09] MEDS: NOREPINEPHRINE BITARTRATE/D5W 4 MG/250 ML PLAST..BAG 21.45 MG IV (07:46)
[2024-07-09 07:58] LABS: INR 1.2 (0.9-1.3); Prothrombin Time 13.7 SECONDS (9.4-12.5)
[2024-07-09 08:09] LABS: D Dimer 583 ng/ml (<500)
[2024-07-09 08:10] LABS: PTT Partial Thromboplastin Tim 24 SECONDS (25.1-36.5)
[2024-07-09 08:29] LABS: Fibrinogen 137 mg/dL (238-498)
--- NOTE | 2024-07-09 08:51 | DI.RAD.S_ITS ---
PROCEDURE: XR CHEST 1V INDICATIONS: PICC placement TECHNIQUE: One view of the chest was acquired. COMPARISON: None. FINDINGS: Surgical changes and devices: Left arm PICC line, the tip which projects to the distal SVC. Lungs and pleura: Lungs are clear. No pleural effusions or pneumothorax. Mediastinum: Mediastinal contours appear normal. Heart size is normal. Bones and chest wall: No suspicious bony lesions. Overlying soft tissues appear unremarkable. IMPRESSION: PICC line tip projects to the distal SVC. No acute pulmonary process. Dictated by: Tyler Valdez M.D. on 07/09/2024 at 9:12 Approved by: Tyler Valdez M.D. on 07/09/2024 at 9:12
[2024-07-09] MEDS: cefTRIAXone 1,000 MG in SODIUM CHLORIDE 0.9% 100 ML 200 MG IV (10:43)
--- NOTE | 2024-07-09 11:01 | PM.CALLCOV.1 ---
Call Coverage Note Note Date of Patient Contact: 07/09/24 Narrative of Care Provided: Continued GI bleed. If not transferred, please bowel prep and make NPO after midnight for colonoscopy tomorrow.
--- NOTE | 2024-07-09 12:12 | CM.DANOTE ---
DCP Assessment Note: Pt is a 48yo female, resident of [place], is admitted for alcohol use disorder and acute blood loss anemia. Pt lives in an apartment with her (Rik) and daughter (Dinora). Pt's does not have an established PCP or health insurance. Reviewed chart and team rounds for pt's medical status and initial discharge needs. DCP met w/patient at bedside; introduced self and role. Present in the room is patient's daughter (Dinora) who is the primary specification manager for patient, (Rik) and sister (Enriqueta). Patient was found in bed, oriented, cooperative with assessment. Patient's primary language is [place], daughter and spoke on her behalf. Pt's previous level of functioning was confirmed. Pt agreeable to hospitalists coordination of an ICU to ICU transfer to [facility] for IR intervention. DCP discussed bernice care packet with patient and family due to pt no insurance. DCP provided Bernice packet with [facility] information attached to pt family (translated in [place]ian). Per [employer], pt has been accepted to [facility], awaiting bed and transport time. Plan: Pt to transfer to [facility] for higher level of care/IR intervention. CM team will follow closely for coordination of discharge plans. NARAYAN Braswell Discharge Planning/Care Management CM Discharge Assessment Start: 07/09/24 12:10 Freq: Status: Active Protocol: Document 07/09/24 12:10 MW (Rec: 07/09/24 12:12 MW [id number]) Discharge Planning Assessment Assigned Shift Manager DARIEN Rodriguez/Assigned Designee Name Dinora, Daughter (primary specification manager) Rik, Contact Information [phone] Advance Directives? No History Provided By Patient,Family Member, Significant Other,Medical Record Has Patient been admitted in last 30 No days? Prior Living Arrangements Apartment/Condo Household Members spouse,family Type of transporation used prior to Drives own vehicle admit Independent with ADL's Yes Is patient alert and oriented? Yes Caregiver for Another No Discharge Plan Transfer to Higher Level of Care Transportation Arrangement BLS transport for ICU to ICU transfer, family to transport at discharge. Whiteboard Updated in Patient Room with Yes name and ext. # of Shift Manager Comment [phone] Please Provide Date Initial DC 07/09/24 Assessment Was Performed Next Review Type Continued Stay Review
--- NOTE | 2024-07-09 13:09 | PM.DS.1 ---
History of Present Illness History of Present Illness Chief complaint: bright red blood per rectum, alcohol withdrawal Narrative: From H&P: Patient is [place] italian speaker here with daughter, they declined chief technology officer with daughter translating encounter 48 y.o. F who has a history of bad alcohol withdrawal, alcohol use disorder presenting to the ED due to bright red blood per rectum at home with associated dizziness. Patient had 3 episodes of passage of blood with clots and one in the ED. She is also requesting medical detox for withdrawal. Patient was vitally stable while in the ED but became dizzy when sitting up. Hgb was stable unchanged significantly from baseline. Alcohol level was <10mg/dL consistent with patients story of last drink night prior to admission. She was calm and exhibiting no major withdrawal symptoms. CT abd was preformed in ED which did not show cirrhosis and demonstrated a Fluid-filled prominence of the sigmoid colon possibly secondary to diarrhea. 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 Lower GI Bleed, likely diverticular bleed, present on admission and active. 2. Acute blood loss anemia, present on admission and active. 3. Severe Alcohol Use Disorder with concern for severe withdrawal, present on admission and active. Hospital Course: The patient was admitted with alcohol use disorder and rectal bleeding. She did not have any severe withdrawal symptoms. She did, however have persistent heavy rectal bleeding. A CT with contrast was negative for obvious focal extravasation of contrast. She had persistent and heavier bleeding on the evening of July 08 and received 3 units that evening in additional to in the morning. The patient required low doses of Levophed and a PICC line was placed in the morning of July 09. She was felt to require high level care with Gastroenterology. I did discuss her with Interventional Radiology at [facility], they recommended colonoscopy for localization and etiology of bleed prior to consideration of angiogram are embolization attempts. Spoke with the ICU doctor, Dr. Bro. He accepted. The patient was stable for discharge by [facility] ambulance. Status at Discharge Cognitive/behavioral status at discharge: oriented Overall status at discharge: patient is progressing back to baseline Time Spent with Patient Time spent: Greater than 30 minutes Exam Vital Signs (past 8 hours): - 07/09/24 05:15 07/09/24 05:15 07/09/24 05:30 Temperature Pulse Rate 89 90 Respiratory Rate 20 20 Blood Pressure 77/44 L Pulse Oximetry 100 100 Oxygen Delivery Method 07/09/24 05:30 07/09/24 05:45 07/09/24 05:45 Temperature Pulse Rate 90 Respiratory Rate 20 Blood Pressure 79/49 L 71/45 L Pulse Oximetry 100 Oxygen Delivery Method 07/09/24 06:00 07/09/24 06:00 07/09/24 06:15 Temperature Pulse Rate 88 Respiratory Rate 19 Blood Pressure 64/45 L 91/54 L Pulse Oximetry 100 Oxygen Delivery Method 07/09/24 06:15 07/09/24 06:30 07/09/24 06:30 Temperature 97.5 F L Pulse Rate 87 94 H Respiratory Rate 20 10 L Blood Pressure 82/52 L 82/52 L Pulse Oximetry 100 Oxygen Delivery Method 07/09/24 06:30 07/09/24 06:45 07/09/24 06:45 Temperature Pulse Rate 93 H 87 Respiratory Rate 22 17 Blood Pressure 80/53 L Pulse Oximetry 100 100 Oxygen Delivery Method 07/09/24 06:47 07/09/24 06:57 07/09/24 07:00 Temperature 97.6 F Pulse Rate 86 88 Respiratory Rate 20 21 Blood Pressure 80/53 L 84/52 L Pulse Oximetry Oxygen Delivery Method 07/09/24 07:00 07/09/24 07:00 07/09/24 07:15 Temperature Pulse Rate 87 Respiratory Rate 22 Blood Pressure 77/52 L Pulse Oximetry 100 Oxygen Delivery Method Room Air 07/09/24 07:15 07/09/24 07:30 07/09/24 07:42 Temperature Pulse Rate 89 82 Respiratory Rate 19 20 Blood Pressure 80/46 L Pulse Oximetry 100 100 Oxygen Delivery Method 07/09/24 07:42 07/09/24 07:45 07/09/24 07:45 Temperature Pulse Rate 88 78 Respiratory Rate 13 21 Blood Pressure 104/62 Pulse Oximetry 100 100 Oxygen Delivery Method 07/09/24 08:00 07/09/24 08:00 07/09/24 08:07 Temperature 98.7 F Pulse Rate 84 Respiratory Rate 19 Blood Pressure 101/62 Pulse Oximetry 100 Oxygen Delivery Method 07/09/24 08:15 07/09/24 08:15 07/09/24 08:30 Temperature Pulse Rate 90 Respiratory Rate 18 Blood Pressure 107/64 109/60 Pulse Oximetry 100 Oxygen Delivery Method 07/09/24 08:30 07/09/24 09:00 07/09/24 09:04 Temperature 98.3 F Pulse Rate 90 94 H 92 H Respiratory Rate 21 17 19 Blood Pressure 101/86 Pulse Oximetry 100 100 Oxygen Delivery Method 07/09/24 09:07 07/09/24 09:18 07/09/24 09:18 Temperature 98.2 F Pulse Rate 89 88 Respiratory Rate 19 19 Blood Pressure 105/81 110/60 Pulse Oximetry 100 Oxygen Delivery Method 07/09/24 09:24 07/09/24 09:30 07/09/24 09:30 Temperature 98.0 F Pulse Rate 81 90 Respiratory Rate 16 17 Blood Pressure 110/60 122/66 Pulse Oximetry 100 Oxygen Delivery Method 07/09/24 10:00 07/09/24 10:01 07/09/24 10:01 Temperature Pulse Rate 92 H 93 H Respiratory Rate 18 18 Blood Pressure 139/67 Pulse Oximetry 100 100 Oxygen Delivery Method 07/09/24 10:30 07/09/24 10:30 07/09/24 11:00 Temperature Pulse Rate 89 Respiratory Rate 19 Blood Pressure 121/69 109/77 Pulse Oximetry 100 Oxygen Delivery Method 07/09/24 11:00 07/09/24 11:30 07/09/24 11:30 Temperature 97.8 F Pulse Rate 89 72 Respiratory Rate 14 19 Blood Pressure 109/77 133/89 Pulse Oximetry 100 Oxygen Delivery Method 07/09/24 11:30 07/09/24 11:31 07/09/24 11:46 Temperature 98.0 F 98.1 F Pulse Rate 99 H 70 92 H Respiratory Rate 15 18 20 Blood Pressure 109/78 128/61 Pulse Oximetry 100 Oxygen Delivery Method 07/09/24 12:00 07/09/24 12:00 07/09/24 12:30 Temperature Pulse Rate 85 Respiratory Rate 20 Blood Pressure 131/64 136/67 Pulse Oximetry 100 Oxygen Delivery Method 07/09/24 12:30 07/09/24 13:00 07/09/24 13:00 Temperature Pulse Rate 92 H 88 Respiratory Rate 17 15 Blood Pressure 114/55 L Pulse Oximetry 99 100 Oxygen Delivery Method Oxygen Delivery Method Room Air Oxygen Flow Rate 0 Narrative Exam Narrative: NAD, alert and oriented. Fluent speech. Lungs are clear, normal rate and effort. Heart is regular, no murmur gallop or rub. Abdomen is soft, non distended. Extremities are free of edema. Objective Imaging CT scan - abdomen: Radiologist's impression: FINDINGS: Image quality: Diagnostic. Lower Chest: No significant findings. ABDOMEN: Liver: No solid mass. Hepatic steatosis. Liver measures 17.3 cm. Gallbladder: No radiopaque gallstones or wall thickening. Biliary ducts: No biliary dilation. Pancreas: No ductal dilation. Spleen: Size is within normal limits. Adrenal Glands: No adrenal nodules. Kidneys and Ureters: No hydronephrosis. No solid mass. No complex renal cystic lesion which requires follow up. Stomach and Bowel: There is fluid-filled prominence of the sigmoid colon with mild scattered fluid levels without gross dilation within the remaining colon. Scattered diverticula are present without definitively identified inflammation. Peritoneum: No abnormal intraperitoneal fluid. No free air. Ventral Wall: No significant ventral hernia. Abdominal Nodes: No retroperitoneal or mesenteric adenopathy by size criteria. Vessels: Aorta and inferior vena cava are normal in size. PELVIS: Pelvic Organs: 2.1 cm right ovarian cyst. Bladder: Bladder demonstrates a diffusely thickened wall. It is incompletely distended. Pelvic Nodes: No enlarged lymph nodes. Miscellaneous: No inguinal hernias are seen. Bones: No aggressive osseous abnormality. IMPRESSION: Fluid-filled prominence of the sigmoid colon possibly secondary to diarrhea. No source of obstruction is identified. Diverticulosis. Despite incomplete distention, bladder wall is markedly thickened. Recommend correlation to symptoms of cystitis. Chest x-ray: Radiologist's impression: PICC line tip projects to the distal SVC. No acute pulmonary process. Labs 07/09/24 05:20 07/09/24 05:20 Labs: Laboratory Results - last 24 hr 07/07/24 07/08/24 07/08/24 17:45 15:05 22:09 WBC 9.5 RBC 2.34 L Hgb 7.9 L 9.8 L Hct 22.7 L 28.0 L MCV 97.0 D MCH 33.7 MCHC 34.7 RDW 14.2 Plt Count 117 L Neut % (Auto) Lymph % (Auto) [place] % (Auto) Eos % (Auto) Baso % (Auto) Neut # (Auto) Lymph # (Auto) [place] # (Auto) Eos # (Auto) Baso # (Auto) PT INR APTT Fibrinogen D-Dimer Sodium Potassium Chloride Carbon Dioxide BUN Creatinine Estimated GFR BUN/Creatinine Ratio Glucose Calcium Blood Type B Positive Antibody Screen Negative Crossmatch See Detail 07/09/24 07/09/24 05:20 07:20 WBC 11.0 RBC 2.26 L Hgb 7.3 L Hct 21.2 L MCV 94.0 D MCH 32.3 MCHC 34.4 RDW 16.5 H Plt Count 96 L Neut % (Auto) 81.8 H D Lymph % (Auto) 9.6 L [place] % (Auto) 6.3 Eos % (Auto) 2.0 Baso % (Auto) 0.3 Neut # (Auto) 9000 H Lymph # (Auto) 1100 [place] # (Auto) 700 Eos # (Auto) 200 Baso # (Auto) 0 PT 13.7 H INR 1.2 APTT 24 L Fibrinogen 137 L D-Dimer 583 H Sodium 133 L Potassium 4.1 Chloride 113 H Carbon Dioxide 18 L BUN 9 Creatinine 0.79 Estimated GFR > 60 BUN/Creatinine Ratio 11.4 Glucose 104 H Calcium 7.3 L Blood Type Antibody Screen Crossmatch [facility] Social History household members: spouse and family Smoking Status: Current every day smoker Discharge Assessment & Plan Assessment and Plan Assessment: 1. Lower GI Bleed, likely diverticular bleed, present on admission and active. 2. Acute blood loss anemia, present on admission and active. 3. Severe Alcohol Use Disorder with concern for severe withdrawal, present on admission and active. Plan of Treatment: ICU to ICU transfer to [facility] for higher level care including GI consultation and possible interventional radiology intervention if required. Discharge Plan Discharge Plan Patient Disposition: [facility] Other facility: [facility] Under care of provider: Dr Bro Discharge orders & Medications Prescriptions: No Action No Known Home Medications Follow up/Referrals: Doctor Gaming MD [Primary Care Provider] - Discharge Health Status Multidrug resistant organism: No MDRO Discharge Data Primary Care Provider: Doctor Mekhi Quality VTE Deep Vein Thrombosis/Pulmonary Embolism Present on Admission: No MIPS - DC The patient has a history of heart transplant or Left Ventricular Assist Device (LVAD). If yes, STOP here.: No The patient has current or prior documentation of left ventricular ejection fraction (LVEF) less than or equal to 40%, or moderate or severely depressed left ventricular systolic function.: No
[2024-07-09 13:33] LABS: Hematocrit 35.3 % (36-46); Hemoglobin 11.8 g/dL (12.0-16.0)
== END 2024-07-09 14:00 | disposition short-term general hospital (02) | DRG 378 ==
LOC: ED 12:57 → AC 14:21 → ICU 16:15
PROVIDERS: Hospitalist; Internal Medicine; Admitting Provider Student in an Organized Health Care Education/Training Program; Emergency Provider Emergency Medicine; Referring Provider Emergency Medicine; Visit Provider Student in an Organized Health Care Education/Training Program
DX: K57.91 Diverticulosis of intestine, part unspecified, without perforation or abscess with bleeding (principal); D62 Acute posthemorrhagic anemia; F10.939 Alcohol use, unspecified with withdrawal, unspecified; N39.0 Urinary tract infection, site not specified; F17.200 Nicotine dependence, unspecified, uncomplicated; Y90.0 Blood alcohol level of less than 20 mg/100 ml
CPT/HCPCS: 36415; 36430; 36569; 71045; 74177; 80048; 80053; 80305; 80320; 81001; 81025; 82272; 82962; 83036; 83735; 85014; 85018; 85025; 85027; 85379; 85384; 85610; 85730; 86850; 86900; 86901; 87077; 87086; 87186; 93005; 96374; 96375; 99232; 99284; 99285; P9016; J0696; J2060; J2470; J2560; J3475; Q9967